=== PATIENT | male | born 1970 | race Caucasian/White ===

== ENCOUNTER 2016-06-26 06:42 | Outpatient (CLI) | payer BC ==
[~2016-06-26] VITALS: Ht 167.6 cm; Wt 122.7 kg
--- NOTE | ~2016-06-26 | HEMODYNAMI ---
PATIENT:SUGAR LEONE MEDICAL RECORD: [id number] : 68 LOCATION:[facility] ADMISSION DATE: 06/26/16 Generatedon:06/26/201612:06 Patient name: SUGAR LEONE Patient #: [id number] SSN: : 1970 Date of study: 06/26/2016 Page: Of Hemodynamic Procedure Report Patient Data Patient Demographics Procedure consent was obtained First Name: USGAR Gender: Male Last Name: SULEMA : 1970 [facility] Initial: EARNESTINE Age: 46 year(s) Patient #: [id number] Race: Unknown Additional ID: [id number] Contact details [address]: [address] [place] [address] State: [place] City: [place] Zip code: [address] Past Medical History Allergies Allergen Reaction Date Comments Reported Other allergy 06/26/2016 levaquin, zosyn, gentamycin, sulfa, lodine Admission Admission Data Admission Date: 06/26/2016 Admission Time: 6:42 Admit Source: Other Lab Results Lab Result Date: 06/26/2016 Lab Result Time: 0:00 Biochemistry Name Units Result Min Max BUN mg/dl 16 --(---*)-- 7 18 Creatinine mg/dl 1.1 --(--*-)-- 0.6 1.3 CBC Name Units Result Min Max Hemoglobin g/dl 13.9 --(*---)-- 13.5 17.5 Procedure Procedure Types Cath Procedure Diagnostic Procedure LHC LHC w/Coronaries FFR/IVUS Intra-Coronary IVUS Initial PCI Procedure Coronary Stent Initial Procedure Description Procedure Date Procedure Date: 06/26/2016 Procedure Start Time: 11:40 Procedure End Time: 12:02 Procedure Staff Name Function Víctor Sheriff RT Physician Office Assistant Emigdio Valerio MD Performing Physician Kelin Armando RN Nurse Elle Burnette RT Scrub Keshawn Frye RT Monitor Procedure Data Cath Procedure Fluoroscopy Diagnostic fluoroscopy Total fluoroscopy Time: 7.6 time: 7.6 min min Diagnostic fluoroscopy Total fluoroscopy dose: dose: 1835 mGy 1835 mGy Contrast Material Contrast Material Type Amount (ml) Isovue 300 136 Entry Location Entry Primary Successful Side Size Upsize Upsize Entry Closure Mccarthy ccessful Closure Location (Fr) 1 (Fr) 2 (Fr) Remarks Device Remarks Radial Right 6 Fr Mechanical artery Short Compression Diagnostic catheters Device Type Used For End Catheter Placement Terumo 5Fr Robert 110cm LV Angiography catheter Procedure Complications No complications Procedure Medications Medication Administration Route Dosage Oxygen NC 2 l/min Heparin Flush Bag added to field 2 bags (1000units/500ml NS) Lidocaine 2% added to field 20 Radial Cocktail added to field 1 syringe (Verapomil 2mg/Nitro 400mcg/Heparin 1500units) Versed I.V. 1 mg Fentanyl I.V. 50 mcg Radial Cocktail I.A. 1 syringe (Verapomil 2mg/Nitro 400mcg/Heparin 1500units) Versed I.V. 1 mg Fentanyl I.V. 50 mcg Versed I.V. 1 mg Fentanyl I.V. 50 mcg Fentanyl I.V. 50 mcg Versed I.V. 1 mg Heparin Bolus I.V. 4000 units Hemodynamics Rest HGB: 13.9 (g/dl) Heart Rate: 75 (bpm) Snapshots Pre Cath Intra NCS Post Cath Vital Signs Time Heart Resp SPO2 NIBP (mmHg) Rhythm Pain Sedation Rate (ipm) (%) Status Level (bpm) 11:27:46 71 16 98 139/87(114) NSR 0 (11) 10(A) , No pain 11:32:00 72 12 98 141/82(102) NSR 0 (11) 10(A) , No pain 11:36:10 76 16 97 137/85(107) NSR 0 (11) 10(A) , No pain 11:40:23 74 16 97 148/84(102) NSR 0 (11) 10(A) , No pain 11:44:31 87 16 97 135/83(120) NSR 0 (11) 10(A) , No pain 11:48:41 91 16 96 135/78(123) NSR 0 (11) 10(A) , No pain 11:52:55 92 16 95 131/77(98) NSR 0 (11) 10(A) , No pain 11:57:52 95 17 95 138/80(100) NSR 0 (11) 10(A) , No pain 11:59:59 91 18 96 137/81(111) NSR 0 (11) 10(A) , No pain Medications Time Medication Route Dose Verified Delivered Reason Note s Effectiveness by by 11:27:58 Oxygen NC 2 l/min Emigdio Kelin Per physician Teodoro Armando RN 11:28:04 Heparin Flush added 2 bags Emigdiobarby Beal used for Bag to Teodoro Valerio MD procedure (1000units/500ml field NS) 11:28:12 Lidocaine 2% added 20ml Emigdio Emigdio used for to vial Teodoro Valerio MD procedure field 11:28:19 Radial Cocktail added 1 Emigdio Emigdio used for (Verapomil to syringe Teodoro Valerio MD procedure 2mg/Nitro field 400mcg/Hepari 11:36:23 Versed I.V. 1 mg Emigdio Kelin for sedation Teodoro Armando RN 11:36:34 Fentanyl I.V. 50 mcg Emigdio Kelin for sedation Teodoro Armando RN 11:38:02 Versed I.V. 1 mg Emigdio Kelin for sedation Teodoro Armando RN 11:38:06 Fentanyl I.V. 50 mcg Emigdio Kelin for sedation Teodoro Armando RN 11:40:05 Fentanyl I.V. 50 mcg Emigdio Kelin for sedation Teodoro Armando RN 11:40:57 Radial Cocktail I.A. 1 Emigdio Emigdio for (Verapomil syringe Teodoro Valerio MD vasodilation 2mg/Nitro 400mcg/Hepari 11:40:59 Versed I.V. 1 mg Emigdio Kelin for sedation Teodoro Armando RN 11:42:13 Fentanyl I.V. 50 mcg Emigdio Kelin for sedation Teodoro Armando RN 11:42:18 Versed I.V. 1 mg Emigdio Kelin for sedation Teodoro Armando RN 11:52:18 Heparin Bolus I.V. 4000 Emigdio Kelin for dose units Teodoro Armando RN anticoagulation verified with dr valerio Procedure Log Time Note 11:14:13 Admit Source: Other 11:14:46 Diagnostic Cath status Elective 11:14:55 Víctor Sheriff RT(R) sent for patient. Start room use. 11:14:57 Time tracking: Regular hours 11:15:02 Plan of Care:Hemodynamics will remain stable., Cardiac rhythm will remain stable., Comfort level will be maintained., Respiratory function will remain adequate., Patient/ family verbilizes understanding of procedure., Procedure tolerated without complication., Recovers from procedure without complications.. 11:15:10 Patient received from Outpatients to [facility] 1 Alert and oriented. Tansferred to table in Supine position. 11:26:43 Vital chart was started 11:27:58 Oxygen 2 l/min NC was given by Kelin Armando RN; Per physician; 11:28:04 Heparin Flush Bag (1000units/500ml NS) 2 bags added to field was given by Emigdio Valerio MD; used for procedure; 11:28:12 Lidocaine 2% 20ml vial added to field was given by Emigdio Valerio MD; used for procedure; 11:28:19 Radial Cocktail (Verapomil 2mg/Nitro 400mcg/Heparin 1500units) 1 syringe added to field was given by Emigdio Valerio MD; used for procedure; 11:31:53 Correct patient and procedure confirmed by team. 11:31:53 Warm blankets applied, and rekha hugger turned on for patient comfort. 11:31:55 Signed procedure consent form obtained from patient. 11:31:56 ECG and BP/O2 sat monitors applied to patient. 11:31:56 Baseline sample Acquired. 11:31:59 Rhythm: sinus rhythm 11:32:01 Full Disclosure recording started 11:32:47 Pre-op teaching completed and patient verbalized understanding. 11:32:47 Pre-procedure instructions explained to patient. 11:32:49 Family in waiting room. 11:32:51 Patient NPO since Midnight. 11:33:24 Patient allergic to Other allergylevaquin, zosyn, gentamycin, sulfa, lodine 11:33:26 Is the patient allergic to Iodine/contrast media? No. 11:33:30 Is patient on blood thinner?Yes 11:33:34 ACC The patient was administered the following blood thiners within the last 24 hours: ACCPlavix 11:33:36 Patient diabetic? No. 11:33:38 If diabetic: On Metformin? No 11:33:39 ----Pre-sedation anethsthesia assessment.---- 11:33:42 Previous problem with sedation/anesthesia? No ? 11:33:43 Snore? Yes 11:33:44 Sleep apnea? Yes 11:33:45 Deviated septum? No 11:33:46 Opens mouth fully? Yes 11:33:47 Sticks out tongue? Yes 11:33:49 Airway obstruction? No ? 11:33:51 Dentures? No ? 11:33:54 Pre procedure: right dorsailis pedis pulse 1+ Palpable, but thready & weak; easily obliterated 11:33:58 Modified Hemant's test Ulnar < 7 seconds 11:34:00 Patient pain scale 0/10 ?. 11:34:03 IV patent on arrival in left antecubital with 0.9% NaCl at 10ml/hr. 11:35:57 Lab Result : Hemoglobin 13.9 g/dl 11:35:57 Lab Result : Creatinine 1.1 mg/dl 11:35:57 Lab Result : BUN 16 mg/dl 11:36:00 Lab results completed and on chart. 11:36:03 Right Radial & Right Groin area was prepped with chlora-prep and draped in sterile fashion 11:36:04 Sharps counted by scrub and verified by R.N. 11:36:04 Alarms reviewed by R. N. 11:36:06 Final Timeout: patient, procedure, and site verified with staff and physician. All members of the team are in agreement. 11:36:06 --------ALL STOP TIME OUT------ 11:36:08 Right Radial & Right Groin site verified by team. 11:36:12 Physical assessment completed. ASA score P 2 - A patient with mild systemic disease as per Emigdio Valerio MD. 11:36:16 Sedation plan: IV Moderate Sedation Versed, Fentanyl 11:36:23 Versed 1 mg I.V. was given by Kelin Armando RN; for sedation; 11:36:34 Fentanyl 50 mcg I.V. was given by Kelin Armando RN; for sedation; 11:36:51 Use device set Radial Dx 11:36:52 Cardinal Cath Pack opened to sterile field. 11:36:52 Acist Syringe opened to sterile field. 11:36:53 Terumo 6Fr Slender Glidesheath opened to sterile field. 11:36:53 Bag Decanter opened to sterile field. 11:36:54 Acist Hand Control opened to sterile field. 11:36:54 St Haile 260cm J .035 wire opened to sterile field. 11:36:55 Acist Manifold opened to sterile field. 11:36:57 Tegaderm 4 x 4 opened to sterile field. 11:38:02 Versed 1 mg I.V. was given by Kelin Armando RN; for sedation; 11:38:06 Fentanyl 50 mcg I.V. was given by Kelin Armando RN; for sedation; 11:39:56 Procedure started. 11:40:05 Fentanyl 50 mcg I.V. was given by Kelin Armando RN; for sedation; 11:40:17 Local anesthetic to right radial artery with Lidocaine 2% by Emigdio Valerio MD.INITIAL ACCESS ONLY 11:40:24 A 6 Fr Short sheath was inserted into the Right Radial artery 11:40:34 A Terumo 5Fr Robert 110cm catheter was advanced over the wire and used for LV Angiography. 11:40:39 LV angiography performed. 11:40:44 Zero performed for pressure channel P1 11:40:56 LV gram done using STEPHENS 11:40:57 Radial Cocktail (Verapomil 2mg/Nitro 400mcg/Heparin 1500units) 1 syringe I.A. was given by Emigdio Valerio MD; for vasodilation; 11:40:59 Versed 1 mg I.V. was given by Kelin Armando RN; for sedation; 11:41:45 EF : 55 % 11:42:04 Injector settings: Ml/sec: 5, Volume: 15, 11:42:13 Fentanyl 50 mcg I.V. was given by Kelin Armando RN; for sedation; 11:42:18 Versed 1 mg I.V. was given by Kelin Armando RN; for sedation; 11:44:42 LCA angiography performed. 11:44:47 RCA angiography performed. 11:44:49 Catheter removed. 11:46:07 Chavez Whisper J 300cm 0.014 guide wire opened to sterile field. 11:46:08 [facility] Eag[facility] IVUS Catheter opened to sterile field. 11:46:08 [facility] BasixCompak Inflation Kit opened to sterile field. 11:46:09 Cordis 6FR XBLAD 3.5 guide catheter opened to sterile field. 11:46:33 6 Fr XBLAD 3.5 guide catheter was inserted over the wire 11:46:36 WHISPER wire advanced. 11:46:38 FFR/IVUS 11:46:39 IVUS catheter advanced over wire. 11:46:40 IVUS pass to LAD lesion performed. 11:51:50 IVUS catheter removed over wire. 11:51:59 Procedure type changed to Cath procedure, Diagnostic procedure, LHC, LHC w/Coronaries, FFR/IVUS, Intra-Coronary IVUS Initial, PCI procedure, Coronary Stent Initial 11:52:18 Heparin Bolus 4000 units I.V. was given by Kelin Armando RN; for anticoagulation; dose verified with dr valerio 11:54:01 Inflation Number: 1 A Medtronic Integrity 4.0 X 22 stent was prepped and advanced across the Prox LAD. The stent was deployed at 17 CARMEL for 0:13 (min:sec). 11:54:57 Stent catheter was removed intact over wire. 11:57:21 Inflation Number: 2 A Medtronic Integrity 4.0 X 12 stent was prepped and advanced across the Prox LAD. The stent was deployed at 17 CARMEL for 0:10 (min:sec). 11:57:34 Stent catheter was removed intact over wire. 11:57:37 ACC Post-intervention EDISON Flow is 3. 11:57:43 ACC PCI Site: pLAD has 80% stenosis. 11:57:45 ACC Pre-intervention EDISON Flow is 3. 11:58:07 Wire removed. 11:58:08 Guide catheter removed. 11:58:17 Procedure ended.(Physican Out) 11:58:22 Sheath removed intact; hemostasis achieved with Mechanical Compression to the Right Radial artery. 11:58:35 Terumo TR Band Large opened to sterile field. 11:58:58 Fluoroscopy time 07.60 minutes. 11:59:08 Fluoroscopy dose: 1835 mGy 11:59:08 Flurop Dose total: 1835 11:59:33 Contrast amount:Isovue 300 136ml. 11:59:34 Sharps counted by scrub and verified by R.N. 11:59:36 TR band inflated with 10cc of air. 11:59:38 Insertion/operative site no bleeding no hematoma. 11:59:43 Post right radial artery:stable 11:59:45 Post Procedure Pulses reassessed and unchanged 11:59:47 Post procedure: right dorsailis pedis pulse 1+ Palpable, but thready & weak; easily obliterated. 11:59:49 Post procedure rhythm: sinus rhythm 11:59:51 Post procedure instruction explained to patient.Patient verbalizes understanding. 12:00:37 Procedure and supply charges have been captured, reviewed, submitted and are correct. 12:00:41 Procedure Complication : No complications 12:02:49 Vital chart was stopped 12:02:51 See physician's report for complete and final results. 12:02:53 Report given to Post Procedure Room. 12:02:56 Patient transfered to Post Procedure Room with Stretcher. 12:02:57 Full Disclosure recording stopped 12:02:57 Procedure ended. 12:03:06 ACC-PCI Only Patient was given prescriptions, or instructed by Emigdio Valerio MD to start/continue the following medications upon discharge: Plavix 12:03:07 End room use (Document Last) 12:06:00 ACC Patient presents with Stable Angina CCS Anginal Class 2--Slight limitation of ordinary activity. Intervention Summary Intervention Notes Time ActionType Lesion and Equipment Action# Pressure Duration Attributes Used 11:54:01 Place stent Prox LAD Medtronic 1 17 00:13 Integrity 4.0 X 22 stent 11:57:21 Place stent Prox LAD Medtronic 2 17 00:10 Integrity 4.0 X 12 stent Device Usage Item Name Manufacture Quantity Catalog Hospital Part Current Minimal Lot# / Number Charge Number Stock Stock Serial# Code Acist Acist 1 74805 604990 092645 350762 20 123people [employer] Inc Cardinal Cardinal 1 [id number] 866822 95388 768359 5 Cath Pack Health Bag Microtek 1 737627 86562 416931 5 [employer] Inc. Terumo 6Fr Terumo 1 [id number] 070337 299088 887525 [address] Ha[address] St Haile 1 771619 358517 429482 604148 30 260cm J .035 wire Acist Hand Acist 1 00880 384115 885419 686738 5 Control Medical Systems Inc Acist Acist 1 38228 761216 928895 302680 5 Manifold Medical Systems Inc Tegaderm 4 3M 1 1626W 542111 103993 856146 5 x 4 Terumo 5Fr Terumo 1 47-3692 105494 251786 849823 5 Robert 110cm catheter Chavez Chavez 1 [id number] 400827 964158 965017 5 Whisper J Vascular 300cm 0.014 guide wire Merit Merit 1 DF0624 908997 325869 964629 15 [employer] Medical Inflation Kit [facility] 1 [id number] 145656 811031 944917 8 [facility] IVUS Catheter Cordis 6FR Cardinal 1 [id number] 735855 901223 378340 10 XBLAD 3.5 Health guide catheter Medtronic Medtronic 1 [id number] 607311 804376 199909 8 [id number] Integrity 4.0 X 22 stent Medtronic Medtronic 1 [id number] 378736 607936 153581 0 [id number] Integrity 4.0 X 12 stent Terumo TR Terumo 1 [id number] 330943 564421 40 Band Large Signature Audit [place] Stage Time Signature Unsigned Intra-Procedure 06/26/2016 Keshawn Frye 12:06:16 PM RT(R) Signatures Monitor : Keshawn Frye RT Signature : Date : Time : [facility] [address] [place] [address]
[2016-06-26] MEDS ORDERED: AVAPRO150 MG PO (08:52)
[2016-06-26] MEDS ORDERED: NORVASC10 MG PO (08:52)
[2016-06-26] MEDS ORDERED: ZOCOR40 MG PO (08:53)
[2016-06-26] MEDS ORDERED: HYDROCHLOROTH12.5 M1 PO (08:54)
[2016-06-26] MEDS ORDERED: PLAVIX75 MG PO ×2 (08:55→12:17)
[2016-06-26 09:03] VITALS: BP 125/74; Ht 167.6 cm; Wt 122.7 kg
[2016-06-26 09:04] LABS: BASOPHILS 0.5 % (0.0-2.0); EOSINOPHILS 4.8 % (0-7); HEMATOCRIT 41.6 % (42.0-54.0); HEMOGLOBIN 13.9 g/dL (13.5-17.5); IMMATURE GRANULOCYTES 0.4 % (0-5); LYMPHOCYTES 48.5 % (15-50); MCH 31.6 pg (26.0-34.0); MCHC 33.4 g/dL (31.0-37.0); MCV 94.5 fL (80.0-100.0); MEAN PLATELET VOLUME 10.1 fL (7.4-10.4); MONOCYTES 9.3 % (2-11); NEUTROPHILS 36.5 % (40-80); PLATELET COUNT 223 10x3/uL (130-400); RDW 12.2 % (11.5-14.5); WBC 5.5 10x3/uL (4.8-10.8)
[2016-06-26 09:15] LABS: CALC OSMOLALITY 285 mosm/kg (275-300); CALCIUM 9.4 mg/dL (8.5-10.1); CARBON DIOXIDE 31.1 mmol/L (21.0-32.0); CHLORIDE - SERUM 104 mmol/L (98-107); CREATININE - SERUM 1.1 mg/dL (0.6-1.3); GLUCOSE 97 mg/dL (74-106); POTASSIUM - SERUM 4.3 mmol/L (3.5-5.1); SODIUM 143 mmol/L (136-145); UREA NITROGEN 16 mg/dL (7-18); eGFR NON AFRICAN AMERICAN 76 mL/min (90-120)
--- NOTE | 2016-06-26 11:11 | HP ---
PATIENT: SUGAR LEONE MEDICAL RECORD: [id number] ACCOUNT: [id number] LOCATION:[facility] : 68 ADMISSION DATE: 06/26/16 HISTORY AND PHYSICAL EXAMINATION DIAGNOSES: 1. Angina. 2. Abnormal nuclear stress test, reversible ischemia anteriorly. 3. Hypertension. 4. Hyperlipidemia. HISTORY OF PRESENT ILLNESS: This is a gentleman with no previous cardiac history, history hypertension or hyperlipidemia, who presents with anginal symptomatology, underwent nuclear stress testing revealing significant perfusion defect anteriorly and he is now brought for cardiac catheterization. PHYSICAL EXAMINATION: GENERAL APPEARANCE: Well-nourished, well-developed, appears stated age. Level of distress, comfortable. PSYCHIATRIC: Mental status, alert, normal affect. Orientation, oriented to time, place and person. EYES: Lids and conjunctiva, noninjected. No discharge, no pallor. ENT: Lips, teeth, gums, normal dentition. Oropharynx, no cyanosis, no pallor. NECK: Carotid arteries, bilateral normal upstroke, no bruits, no thrills. JUGULAR VEINS: No jugular venous pressure or distention. CERVICAL LYMPH NODES: Nontender, nonenlarged. THYROID: Not enlarged. Nontender. No nodules. LUNGS: Respiratory effort, unlabored. CHEST: Normal curvature. No thoracic deformity. No chest wall tenderness. Percussion, resonant. Auscultation, clear. No wheezes, no rales, no rhonchi. CARDIOVASCULAR: Precordial exam, nondisplaced. No heaves or pericardial thrills. Rate and rhythm, regular. Heart sounds, normal S1, normal S2. No S3, no gallop, no rub. Systolic murmur, not heard. Diastolic murmur, not heard. EXTREMITIES: No cyanosis, no edema. Peripheral pulses, full and equal in all extremities, except as noted. No bruits appreciated. ABDOMEN: Soft, nondistended. Normal aorta. No bruit. Nontender. No masses. Liver, nontender, no hepatomegaly. Spleen, nontender, no splenomegaly. MUSCULOSKELETAL: No joint tenderness. No joint swelling. No erythema. NEUROLOGICAL: Normal gait, normal strength, normal tone. SKIN: Warm and dry. REVIEW OF SYSTEMS: The patient reports easy bruising but reports no swollen glands. The patient reports no fever, no night sweats, no significant weight gain, no significant weight loss. No significant exercise tolerance. The patient reports no dry eyes, no irritation, no vision change. Patient reports no difficulty hearing and no ear pain. Patient reports no frequent nose bleeds or nose and sinus problems. Patient reports on arm pain on exertion. No shortness of breath while lying down. No history of heart murmur. Patient reports no cough, no wheezing or coughing up blood. Patient reports no abdominal pain, no vomiting. Normal appetite. No diarrhea and not vomiting blood. No nausea and no constipation. Patient reports no incontinence. No difficulty urinating. No hematuria. No increased frequency. Patient reports no muscle aches. No weakness, no arthralgias, no back pain. No swelling of the extremities. Patient reports no abnormal mole, no jaundice, no rashes. Reports no loss of consciousness. No weakness and no numbness. No seizures, dizziness, HISTORY AND PHYSICAL [id number] SULEMA,SUGAR EARNESTINE or headaches. The patient reports no depression, no sleep disturbance, feeling safe in a relationship and no alcohol abuse. Patient reports on fatigue. Reports no runny nose or sinus pressure. No itching, no hives, and no frequent sneezing. OVERALL IMPRESSION: Anginal symptomatology with significant perfusion defect on nuclear stress testing. We will proceed with coronary angiography as most likely, he has hemodynamically significant coronary artery disease. Further care depends upon findings of the angiography. TRANSINT:[id number] Voice Confirmation ID: [id number] DOCUMENT ID: [id number] BRYSON DIAZ MD at 1111 CC: [id number] DICTATION DATE: 06/26/16903 PET HOUSE SITTER: 06/26/16924 [facility] [address] [id number]
[2016-06-26] MEDS ORDERED: BAYER CHEWABLE81 MG PO (12:17)
--- NOTE | 2016-06-26 12:26 | NUR ---
1225 SITTING UP IN BED TALKING WITH FAMILY, ROOM AIR WITH NO DISTRESS. NSR RATE 71 W NO C/O CHEST PAIN. PULSES PALP X 4. R WRIST TR BAND C/D/I WITH NO HEMATOMA OR BLEEDING.
--- NOTE | 2016-06-26 15:29 | NUR ---
1300 R WRIST TR BAND C/D/I WITH NO HEMATOMA OR BLEEDING. LYING FLAT. VITALS ALL WNL. ROOM AIR WITH NO RESP DISTRESS. 1400 RESTING WITH EYES CLOSED, ROOM AIR, NSR RATE 71 W NO C/O CHEST PAIN. PULSES PALP X4. R WRIST TR BAND C/D/I WITH NO HEMATOMA OR BLEEDING. 1500 4CC AIR REMOVED FROM R WRIST TR BAND C/D/I WITH NO HEMATOMA OR BLEEDING. VITALS ALL WNL. WILL MONITOR CLOSELY FOR BLEEDING.
--- NOTE | 2016-06-26 15:46 | NUR ---
PIV REMOVED FROM LEFT UPPER ARM WITH BANDAID APPLIED. UP TO BEDSIDE TO DRESS WITH ASSIST FROM .
--- NOTE | 2016-06-26 16:02 | NUR ---
TR BAND REMOVED WITH 2X2 AND TEGADERM APPLIED TO R WRIST. D/C INSTRUCTIONS DISCUSSED WITH PATIENT AND SPOUSE AT BEDSIDE. WHEELED DOWN VIA WHEELCHAIR BY CATH TEAM.
--- NOTE | 2016-07-03 16:40 | OP ---
PATIENT NAME: SUGAR LEONE MEDICAL RECORD: [id number] :68 LOCATION:D.CAT ADMISSION DATE: SURGEON: BRYSON DIAZ MD DATE OF OPERATION: 06/26/2016 PROCEDURES: 1. PTCA stent LAD. 2. Intravascular ultrasound of the LAD. 3. Left heart catheterization. 4. Selective coronary angiography. 5. Left ventriculogram. INDICATION: Angina and coronary artery disease. PROCEDURE IN DETAIL: After informed consent was obtained and after detailed explanation of risks, benefits as well as alternative therapies, the patient elected to proceed with angiogram and angioplasty. The right radial area was prepped and draped in normal sterile fashion. The right radial artery was cannulated via modified Seldinger technique with placement of 6-Setswana sheath. All catheters exchanged through this sheath. FINDINGS: Left ventriculogram was performed in standard 30-degree STEPHENS view, reveals good cardiac wall motion throughout all segments. Overall ejection fraction 55%. SELECTIVE CORONARY ANGIOGRAPHY: 1. Left main showed no significant angiographic disease. 2. Left anterior descending has 80% stenosis confirmed by intravascular ultrasound. This correlates perfusion defect on nuclear stress testing. 3. The left circumflex shows moderate irregularities. 4. The right coronary has moderate irregularities, but no flow-limiting stenosis. PTCA STENT OF THE LAD: The stent used were 4.0 x 22 and 4.0 x 12 both Integrity stents. Result was 0% residual stenosis. OVERALL IMPRESSION: Successful percutaneous transluminal coronary angioplasty stent of the left anterior descending going from 80% initial stenosis to 0% residual. TRANSINT:[id number] Voice Confirmation ID: [id number] DOCUMENT ID: [id number] BRYSON DIAZ MD at 1640 CC: [id number] DICTATION DATE: 06/26/16 1203 STAMP PRESS OPERATOR: 06/26/16 1212 [facility] CLI 06/26/16 [place] [address]
== END 2016-06-26 16:05 | disposition home or self-care (01) ==
LOC: D.CATH 06:42
PROVIDERS: Internal Medicine Interventional Cardiology
DX: I25.119 Atherosclerotic heart disease of native coronary artery with unspecified angina pectoris (principal)

== ENCOUNTER 2017-06-01 07:37 | Outpatient (CLI) | payer BC ==
[2016-06-26 09:03] VITALS: BMI 43.6
--- NOTE | ~2017-06-01 | HEMODYNAMI ---
PATIENT:SUGAR LEONE MEDICAL RECORD: [id number] : 68 LOCATION:D.CAT ADMISSION DATE: 06/01/17 Generatedon:06/01/201710:00 Patient name: SUGAR LEONE Patient #: [id number] SSN: : 1970 Date of study: 06/01/2017 Page: Of Hemodynamic Procedure Report Patient Data Patient Demographics Procedure consent was obtained First Name: SUGAR Gender: Male Last Name: SULEMA : 1970 [facility] Initial: EARNESTINE Age: 47 year(s) Patient #: [id number] Race: Unknown Additional ID: [id number] Contact details Address: [address] [place] [address] State: [place] City: [place] Zip code: [address] Past Medical History Allergies Allergen Reaction Date Comments Reported Other allergy 06/26/2016 levaquin, zosyn, gentamycin, sulfa, lodine Other allergy 06/01/2017 Sulfa, Zosyn, gentamycin, Levaquin, Lodine, Plavix, Amledpine. Admission Admission Data Admission Date: 06/01/2017 Admission Time: 7:37 Admit Source: Other Procedure Procedure Types Cath Procedure Diagnostic Procedure [facility] w/Coronaries PCI Procedure Coronary Stent Coronary Stent Initial Miscellaneous Procedures Moderate Sedation up to 30 minutes Procedure Description Procedure Date Procedure Date: 06/01/2017 Procedure Start Time: 9:41 Procedure End Time: 9:59 Procedure Staff Name Function Emigdio Valerio MD Performing Physician Scar Flores RN Nurse Damien Horner RT Monitor Columba Zamora RT Scrub Procedure Data Cath Procedure Fluoroscopy Diagnostic fluoroscopy Total fluoroscopy Time: 3.3 time: 3.3 min min Diagnostic fluoroscopy Total fluoroscopy dose: 815 dose: 815 mGy mGy Contrast Material Contrast Material Type Amount (ml) Isovue 300 86 Entry Location Entry Primary Successful Side Size Upsize Upsize Entry Closure Mccarthy ccessful Closure Location (Fr) 1 (Fr) 2 (Fr) Remarks Device Remarks Radial Right 6 Fr Mechanical artery Short Compression Estimated blood loss: 10 ml Diagnostic catheters Device Type Used For End Catheter Placement DIAGNOSTIC Terril 110cm 5 Procedure Fr catheter ([id number]) Procedure Complications No complications Procedure Medications Medication Administration Route Dosage 0.9% NaCl I.V. 100 ml/hr Oxygen NC 2 l/min Heparin Flush Bag added to field 2 bags (1000units/500ml NS) Lidocaine 2% added to field 20 Versed I.V. 2 mg Fentanyl I.V. 100 mcg Radial Cocktail I.A. (Verapomil 2mg/Nitro 400mcg/Heparin 1500units) Versed I.V. 1 mg Versed I.V. 1 mg Heparin Bolus I.V. 4000 units Integrilin (Bolus I.V. 11.3 ml 2mg/ml) Integrilin (Bolus wasted 8.7 ml 2mg/ml) Effient P.O. 60 mg Hemodynamics Rest Heart Rate: 63 (bpm) Pressure Samples Time Site Value (mmHg) Purpose Heart Use Rate(bpm) 9:44 LV 66/15,22 Snapshot 73 9:44 LV 112/2,13 Snapshot 72 Snapshots Pre Cath Intra NCS Post Cath Vital Signs Time Heart Resp SPO2 etCO2 NIBP (mmHg) Rhythm Pain Sedation Rate (ipm) (%) (mmHg) Status Level (bpm) 9:28:42 62 21 96 18 124/71(91) NSR 0 (11) 10(A) , No pain 9:33:26 60 19 100 41.4 128/71(89) NSR 0 (11) 10(A) , No pain 9:38:11 60 22 98 41.4 122/74(97) NSR 0 (11) 10(A) , No pain 9:42:52 64 18 97 26.3 123/76(109) NSR 0 (11) 10(A) , No pain 9:47:39 74 18 94 39.9 119/71(86) NSR 0 (11) 10(A) , No pain 9:52:28 76 16 98 39.1 125/62(93) NSR 0 (11) 10(A) , No pain 9:57:16 68 23 96 39.1 111/45(73) NSR 0 (11) 10(A) , No pain Medications Time Medication Route Dose Verified Delivered Reason Notes Effectiveness by by 9:30:57 0.9% NaCl I.V. 100 Scar Scar Per physician ml/hr Mark Flores RN RN 9:31:22 Oxygen NC 2 Scar Scar Per physician l/min Mark Flores RN RN 9:31:34 Heparin Flush added 2 Scar Scar used for Bag to bags Mark Flores procedure (1000units/500ml field RN RN NS) 9:31:47 Lidocaine 2% added 20ml Scar Scar for local to vial Mark Flores anesthetic field RN RN 9:40:32 Versed I.V. 2 mg Scar Scar for sedation Mark Flores RN RN 9:40:41 Fentanyl I.V. 100 Scar Scar for sedation mcg Mark Flores RN RN 9:42:21 Radial Cocktail I.A. Scar Meigdio for (Verapomil Mark Valerio MD vasodilation 2mg/Nitro RN 400mcg/Heparin 1500units) 9:42:32 Versed I.V. 1 mg Scar Scar for sedation Mark Flores RN RN 9:43:39 Versed I.V. 1 mg Scar Scar for sedation Mark Flores RN RN 9:52:30 Heparin Bolus I.V. 4000 Scar Scar for units Mark Flores anticoagulation RN RN 9:52:52 Integrilin I.V. 11.3 Scar Scar for (Bolus 2mg/ml) ml Mark Flores antiplatelet RN RN therapy 9:53:07 Integrilin wasted 8.7ml Scar Scar to sharp's (Bolus 2mg/ml) Mark Flores RN RN 9:57:04 Effient P.O. 60 mg Scar Scar for Mark Flores antiplatelet RN RN therapy Procedure Log Time Note 8:46:29 Informed consent obtained and on chart 8:46:41 Admit Source: Other 8:47:14 Diagnostic Cath status Elective 9:15:57 Columba Zamora RT(R) sent for patient. Start room use. 9:15:58 Time tracking: Regular hours 9:16:04 Plan of Care:Hemodynamics will remain stable., Cardiac rhythm will remain stable., Comfort level will be maintained., Respiratory function will remain adequate., Patient/ family verbilizes understanding of procedure., Procedure tolerated without complication., Recovers from procedure without complications.. 9:22:10 Patient received from Pre/Post Procedure Room to CCL 1 Alert and oriented. Tansferred to table in Supine position. 9:22:12 Warm blankets applied, and rekha hugger turned on for patient comfort. 9:22:12 Warm blankets applied, and rekha hugger turned on for patient comfort. 9:22:13 Correct patient and procedure confirmed by team. 9:22:16 ECG and BP/O2 sat monitors applied to patient. 9:22:35 H&P Date Dictated: 05/12/2017 Within 30 days and on chart., H&P Addendum completed by physician on day of procedure. (MUST COMPLETE FOR ALL OUTPATIENTS). 9:22:37 Pre-procedure instructions explained to patient. 9:22:37 Pre-op teaching completed and patient verbalized understanding. 9:22:39 Family in waiting room. 9:22:41 Patient NPO since Midnight. 9:27:46 Vital chart was started 9:27:47 Full Disclosure recording started 9:30:57 0.9% NaCl 100 ml/hr I.V. was administered by Scar Flores RN; Per physician; 9:31:22 Oxygen 2 l/min NC was administered by Scar Flores RN; Per physician; 9:31:34 Heparin Flush Bag (1000units/500ml NS) 2 bags added to field was administered by Scar Flores RN; used for procedure; 9:31:47 Lidocaine 2% 20ml vial added to field was administered by Scar Flores RN; for local anesthetic; 9:37:15 Baseline sample Acquired. 9:37:21 Rhythm: sinus rhythm 9:38:06 Patient allergic to Other allergySulfa, Zosyn, gentamycin, Levaquin, Lodine, Plavix, Amledpine. 9:38:08 Is the patient allergic to Iodine/contrast media? No. 9:38:09 Is patient on blood thinner?No 9:38:10 Patient diabetic? No. 9:38:12 Previous problem with sedation/anesthesia? No ? 9:38:13 Snore? Yes 9:38:14 Sleep apnea? Yes 9:38:15 Deviated septum? No 9:38:16 Opens mouth fully? Yes 9:38:18 Sticks out tongue? Yes 9:38:20 Airway obstruction? No ? 9:38:22 Dentures? No ? 9:38:24 Modified Hemant's test Ulnar < 7 seconds 9:38:25 Patient pain scale 0/10 ?. 9:38:34 IV patent on arrival in left hand with 0.9% NaCl at [facility]. 9:38:37 Lab results completed and on chart. 9:38:39 Right Radial & Right Groin area was prepped with chlora-prep and draped in sterile fashion 9:38:40 Alarms reviewed by R. N. 9:38:40 Sharps counted by scrub and verified by R.N. 9:38:42 Use device set Radial Dx 9:38:45 Tegaderm 4 x 4 ([id number]) opened to sterile field. 9:38:45 ACIST Hand Control (67726) opened to sterile field. 9:38:46 ACIST Manifold (88674) opened to sterile field. 9:38:47 ACIST Syringe (91826) opened to sterile field. 9:38:48 Medline Cath Pack ([id number]) opened to sterile field. 9:38:49 Bag Decanter (2002S) opened to sterile field. 9:38:51 DIAGNOSTIC WIRE .035 260cm J wire (067954) opened to sterile field. 9:38:52 SHEATH 6FR Slender ([id number]) opened to sterile field. 9:39:01 Physician arrived 9:39:01 --------ALL STOP TIME OUT------ 9:39:02 Final Timeout: patient, procedure, and site verified with staff and physician. All members of the team are in agreement. 9:39:04 Right Radial & Right Groin site verified by team. 9:39:06 Physical assessment completed. ASA score P 2 - A patient with mild systemic disease as per Emigdio Valerio MD. 9:39:10 Sedation plan: IV Moderate Sedation Medication:Versed, Fentanyl 9:40:32 Versed 2 mg I.V. was administered by Scar Flores RN; for sedation; 9:40:41 Fentanyl 100 mcg I.V. was administered by Scar Flores RN; for sedation; 9:41:35 Procedure started. 9:41:39 Local anesthetic to right radial artery with Lidocaine 2% by Emigdio Valerio MD.INITIAL ACCESS ONLY 9:41:48 A 6 Fr Short sheath was inserted into the Right Radial artery 9:42:00 A DIAGNOSTIC Terril 110cm 5 Fr catheter ([id number]) was advanced over the wire and used for Procedure. 9:42:21 Radial Cocktail (Verapomil 2mg/Nitro 400mcg/Heparin 1500units) I.A. was administered by Emigdio Valerio MD; for vasodilation; 9:42:32 Versed 1 mg I.V. was administered by Scar Flores RN; for sedation; 9:42:37 Zero performed for pressure channel P1 9:42:43 Zero performed for pressure channel P1 9:43:39 Versed 1 mg I.V. was administered by Scar Flores RN; for sedation; 9:44:39 LV gram done using STEPHENS 9:44:52 EF : 55 % 9:46:05 LCA angiography performed. 9:46:27 INFLATOR Merit BasixCompak (MS0408) opened to sterile field. 9:47:41 RCA angiography performed. 9:49:14 CHOICE PT Extra Support 182cm wire ([id number]) opened to sterile field. 9:49:15 GUIDE 6FR XBLAD 3.5 catheter ([id number]) opened to sterile field. 9:50:12 Catheter removed. 9:50:19 6 Fr xblad 3.5 guide catheter was inserted over the wire 9:50:45 choice pt wire advanced. 9:50:49 Wire advanced across lesion. 9:52:30 Heparin Bolus 4000 units I.V. was administered by Scar Flores RN; for anticoagulation; 9:52:31 Inflation Number: 1 A INTEGRITY RX 2.5 x 14 stent ([id number]) was prepped and advanced across the Mid LAD. The stent was deployed at 15 CARMEL for 0:10 (min:sec). 9:52:52 Integrilin (Bolus 2mg/ml) 11.3 ml I.V. was administered by Scar Flores RN; for antiplatelet therapy; 9:53:07 Integrilin (Bolus 2mg/ml) 8.7ml wasted was administered by Scar Flores RN; to sharp's; 9:53:14 Stent catheter was removed intact over wire. 9:53:15 Wire removed. 9:53:16 Guide catheter removed. 9:53:29 TR BAND Large ([id number]) opened to sterile field. 9:53:44 Sheath removed intact; hemostasis achieved with Mechanical Compression to the Right Radial artery. 9:54:26 Procedure ended.(Physican Out) 9:55:40 Fluoroscopy time 03.30 minutes. 9:55:44 Fluoroscopy dose: 815 mGy 9:55:44 Flurop Dose total: 815 9:55:51 Contrast amount:Isovue 300 86ml. 9:55:52 Sharps counted by scrub and verified by R.N. 9:56:39 TR band inflated with 12cc of air. 9:56:40 Insertion/operative site no bleeding no hematoma. 9:56:55 Post right radial artery:stable, soft, clean and dry 9:56:57 Post Procedure Pulses reassessed and unchanged 9:56:59 Post-procedure physical assessment completed. ASA score P 2 - A patient with mild systemic disease as per Emigdio Valerio MD. 9:57:02 Post procedure rhythm: unchanged. 9:57:04 Effient 60 mg P.O. was administered by Scar Flores RN; for antiplatelet therapy; 9:57:04 Estimated blood loss: 10 ml 9:57:07 Post procedure instruction explained to patient.Patient verbalizes understanding. 9:57:08 Patient needs reinforcement of post procedure teaching. 9:57:31 Procedure type changed to Cath procedure, Diagnostic procedure, LHC, LHC w/Coronaries, PCI procedure, Coronary Stent, Coronary Stent Initial, Miscellaneous Procedures, Moderate Sedation up to 30 minutes 9:58:57 Procedure and supply charges have been captured, reviewed, submitted and are correct. 9:58:59 Procedure Complication : No complications 9:59:01 Vital chart was stopped 9:59:02 See physician's report for complete and final results. 9:59:03 Report given to Pre/Post Procedure Room. 9:59:05 Patient transfered to Pre/Post Procedure Room with Stretcher. 9:59:07 Procedure ended. 9:59:07 Full Disclosure recording stopped 9:59:11 End room use (Document Last) Intervention Summary Intervention Notes Time ActionType Lesion and Equipment Action# Pressure Duration Attributes Used 9:52:31 Place stent Mid LAD INTEGRITY RX 1 15 00:10 2.5 x 14 stent ([id number]) Device Usage Item Name Manufacture Quantity Catalog Number Hospital Part Current Mini mal Lot# / Charge Number Stock Stock Serial# Code Tegaderm 4 x 3M 1 1626W 950505 999614 [id number] 5 4 (1626W) ACIST Hand Acist 1 86673 891011 318296 323550 5 Control Medical (89731) Systems Inc ACIST Acist 1 67665 414942 794071 052388 5 Manifold Medical (29229) Systems Inc ACIST Acist 1 48983 863556 725286 441466 20 Syringe Medical (80264) Systems Inc Medline Cath Cardinal 1 [id number] 627111 01560 688371 5 Pack Health ([id number]) Bag Decanter Microtek 1 2001S 318304 59765 561813 5 (2001S) Medical Inc. DIAGNOSTIC St Haile 1 340758 766155 066607 767215 30 WIRE .035 260cm J wire (014771) SHEATH 6FR Terumo 1 [id number] 907203 546117 468825 40 Slender ([id number]) DIAGNOSTIC Terumo 1 40-5013 944343 415696 362353 5 Terril 110cm 5 Fr catheter (163834) INFLATOR Merit 1 MT2213 636682 742502 660881 15 [facility] Medical BasixCompak (LM1581) CHOICE PT King 1 [id number] 910130 334073 687804 5 Extra Scientific Support 182cm wire ([id number]) GUIDE 6FR Cardinal 1 [id number] 118957 817167 469486 10 XBLAD 3.5 Health catheter ([id number]) INTEGRITY RX Medtronic 1 [id number] 216652 326162 091172 5 [id number] 2.5 x 14 stent ([id number]) TR BAND Terumo 1 [id number] 574888 133947 911060 40 Large ([id number]) Signature Audit [place] Stage Time Signature Unsigned Intra-Procedure 06/01/2017 Damien Horner 10:00:06 AM RT(R) Signatures Monitor : Damien Honrer RT Signature : Date : Time : [facility] [address] [place] [address]
[~2017-06-01 07:37] MED LIST: AVAPRO150 MG PO; BAYER CHEWABLE81 MG PO; HYDROCHLOROTH12.5 M1 PO; NORVASC10 MG PO; PLAVIX75 MG PO; ZOCOR40 MG PO
[2017-06-01] MEDS ORDERED: ZOCOR40 MG PO (08:03)
[2017-06-01] MEDS ORDERED: EDARBYCLOR 40-1 EAC1 PO (08:04)
[2017-06-01] MEDS ORDERED: ZANAFLEX4 MG PO (08:04)
[2017-06-01] MEDS ORDERED: MULTIPLE VITAMI1 TA1 PO (08:05)
[2017-06-01 09:02] LABS: BASOPHILS 0.6 % (0-2); EOSINOPHILS 6.3 % (0-7); HEMOGLOBIN 14.1 g/dL (13.5-17.5); IMMATURE GRANULOCYTES 0.2 % (0-5); LYMPHOCYTES 43.3 % (15-50); MCH 31.3 pg (26.0-34.0); MCHC 33.6 g/dL (31.0-37.0); MCV 93.1 fL (80.0-100.0); MEAN PLATELET VOLUME 10.1 fL (7.4-10.4); MONOCYTES 7.8 % (2-11); NEUTROPHILS 41.8 % (40-80); PLATELET COUNT 204 10x3/uL (130-400); RBC 4.51 10x6/uL (4.20-6.10); RDW 13.1 % (11.5-14.5); WBC 5.2 10x3/uL (4.8-10.8)
[2017-06-01 09:21] LABS: CALC OSMOLALITY 281 mosm/kg (275-300); CALCIUM 9.5 mg/dL (8.5-10.1); CARBON DIOXIDE 27.9 mmol/L (21.0-32.0); CHLORIDE - SERUM 102 mmol/L (98-107); CREATININE - SERUM 1.1 mg/dL (0.6-1.3); GLUCOSE 94 mg/dL (74-106); SODIUM 140 mmol/L (136-145); UREA NITROGEN 21 mg/dL (7-18); eGFR NON AFRICAN AMERICAN 76 mL/min (90-120)
[2017-06-01] MEDS ORDERED: BRILINTA90 MG PO (10:16)
[2017-06-01] MEDS ORDERED: EFFIENT10 MG PO (10:24)
--- NOTE | 2017-06-01 10:39 | NUR ---
1025 SITTING UP IN BED, ROOM AIR WITH NO RESP DISTRESS. NSR RATE 67 W NO C/O CHEST PAIN. PULSES PALP X 4. R WRIST TR BAND C/D/I W NO HEMATOMA OR BLEEDING. FAMILY AT SIDE. 1040 SITTING UP EATING SANDWICH TRAY AND DRINKING COFFEE. R WRIST REMAINS C/D/I W NO HEMATOMA OR BLEEDING.
--- NOTE | 2017-06-01 12:35 | NUR ---
600CC VOIDED VIA URINAL. ALL VITALS WNL. R WRIST TR BAND C/D/I. FAMILY AT BEDSIDE.
--- NOTE | 2017-06-01 12:41 | NUR ---
1100 SITTING UP IN BED, TALKING WITH FAMILY AT BEDSIDE. ALL VITALS WNL. R WRIST TR BAND C/D/I. 1241 SIPPING COFFE. NO C/O THIS TIME. R WRIST TR BAND C/D/I. ALL VITALS WNL.
--- NOTE | 2017-06-01 13:21 | NUR ---
2CC AIR REMOVED FROM R WRIST TR BAND. WILL MONITOR FOR BLEEDING.
--- NOTE | 2017-06-01 13:36 | NUR ---
2CC AIR REMOVED FROM R WRIST TR BAND. NO BLEEDING OR HEMATOMA NOTED.
--- NOTE | 2017-06-01 13:51 | NUR ---
PIV REMOVED FROM LEFT HAND WITH BANDAID APPLIED. UP TO BEDSIDE TO DRESS.
--- NOTE | 2017-06-01 14:24 | NUR ---
TR BAND WEANED COMPLETELY. TEGADERM AND COTTON BALL APPLIED TO WRIST. CALLED DR. DIAZ REGARDING RX FOR SUBLINGUAL NITRO FOR PATIENT. T/O FOR SUBLINGUAL NITRO GIVEN. D/C INSTRUCTIONS DISCUSSED WITH PATIENT AND AT BEDSIDE. WHEELED OUT VIA WHEELCHAIR.
--- NOTE | 2017-06-09 15:46 | OP ---
PATIENT NAME: SUGAR LEONE MEDICAL RECORD: [id number] :68 LOCATION:D.CAT ADMISSION DATE: SURGEON: BRYSON DIAZ MD DATE OF OPERATION: 06/01/2017 PROCEDURES: 1. PTCA stent LAD. 2. Left heart catheterization. 3. Selective coronary angiography. 4. Left ventriculogram. INDICATION: Angina and coronary artery disease. PROCEDURE IN DETAIL: After informed consent was obtained and after detailed explanation of risks, benefits as well as alternative therapies, the patient elected to proceed with angiogram and angioplasty. The right radial area was prepped and draped in normal sterile fashion. The right radial artery was cannulated via modified Seldinger technique with placement of 6-Palestinian sheath. All catheters exchanged through this sheath. FINDINGS: Left ventriculogram was performed in the standard 30-degree STEPHENS view reveals good cardiac wall motion throughout all segments. Overall ejection fraction estimated 60%. SELECTIVE CORONARY ANGIOGRAPHY: 1. Left main showed no significant angiographic disease. 2. Left anterior descending has previously placed stent. This is widely patent. However, there is 70% stenosis in the mid vessel. 3. Left circumflex shows moderate irregularities, but no flow-limiting stenosis. 4. Right coronary has moderate irregularities, but no flow-limiting stenosis. PTCA STENT OF THE LAD: The stent used is a 2.5 x 14 mm Integrity taken to 15 atmospheres. Result was 0% residual stenosis. OVERALL IMPRESSION: Successful percutaneous transluminal coronary angioplasty stent of the left anterior descending going from 70% initial stenosis to 0% residual. TRANSINT:[id number] Voice Confirmation ID: [id number] DOCUMENT ID: [id number] BRYSON DIAZ MD at 1546 CC: [id number] DICTATION DATE: 06/01/17 0958 RADIAL DRILL OPERATOR: 06/01/17 1106 DEP CLI 06/01/17 [place] [id number]
== END 2017-06-01 14:26 | disposition home or self-care (01) ==
LOC: D.CATH 07:37
PROVIDERS: Internal Medicine Interventional Cardiology
DX: I20.9 Angina pectoris, unspecified (principal); I10 Essential (primary) hypertension; E78.5 Hyperlipidemia, unspecified; F17.200 Nicotine dependence, unspecified, uncomplicated; Z01.812 Encounter for preprocedural laboratory examination

== ENCOUNTER → 2018-07-13 10:57 | Outpatient (CLI) | payer BC ==
[2016-06-26 09:03] VITALS: BMI 43.6
[~2018-07-13 10:57] MED LIST changes: +BRILINTA90 MG PO; +EDARBYCLOR 40-1 EAC1 PO; +EFFIENT10 MG PO; +MULTIPLE VITAMI1 TA1 PO; +ZANAFLEX4 MG PO
--- NOTE | 2018-07-15 12:11 | ST ---
PATIENT:SUGAR LEONE MEDICAL RECORD: [id number] SEX: M LOCATION:[facility] ORDER #: ADMISSION DATE: 07/13/18 AGE OF PATIENT: 48 REFERRING PHYSICIAN: INTERPRETING PHYSICIAN: BRYSON DIAZ MD DATE OF SERVICE: 07/13/2018 PROCEDURE: Nuclear stress test. INDICATION: Angina, coronary artery disease, hypertension, and hyperlipidemia. He was exercised on standard Lexiscan protocol with 30 mCi of sestamibi injected at peak stress, 11 mCi were used previously for rest images. FINDINGS: Gated SPECT reveals a preserved ejection fraction at 65% with good wall motioning and thickening and brightening throughout all segments. SPECT IMAGING: Cardiolite was used as myocardial fusion agent. There are reversible changes anteriorly as well as inferoapically. This includes the basal, mid, apical anterior segments as well as basal, mid, apical inferior segments and the apex itself. The degree of reversibility is moderate. The amount of myocardium involved is very large. OVERALL IMPRESSION: This is a markedly abnormal nuclear stress test with reversibility anteriorly, inferiorly, and apically suggestive of multivessel coronary artery disease. We will proceed with coronary angiography as followup study. TRANSINT:[id number] Voice Confirmation ID: [id number] DOCUMENT ID: [id number] BRYSON DIAZ MD at 1211 CC: [id number] DICTATION DATE: 07/13/18 1605 FEED RESEARCH AIDE: 07/14/18 0826 DEP CLI 07/13/18 [place] [id number] [place] [id number]
== END | disposition home or self-care (01) ==
LOC: D.HCCARDIO 10:57
DX: I25.119 Atherosclerotic heart disease of native coronary artery with unspecified angina pectoris (principal)

== ENCOUNTER 2018-07-22 07:30 | Outpatient (CLI) | payer BC ==
[~2018-07-22] VITALS: Ht 167.6 cm; Wt 136.4 kg
--- NOTE | ~2018-07-22 | HEMODYNAMI ---
PATIENT:SUGAR LEONE MEDICAL RECORD: [id number] : 68 LOCATION:[facility] ADMISSION DATE: 07/22/18 Generatedon:07/22/20189:32 Patient name: SUGAR LEONE Patient #: [id number] SSN: : 1970 Date of study: 07/22/2018 Page: Of Hemodynamic Procedure Report Patient Data Patient Demographics Procedure consent was obtained First Name: SUGAR Gender: Male Last Name: SULEMA : 1970 [facility] Initial: EARNESTINE Age: 48 year(s) Patient #: [id number] Race: Unknown Additional ID: [id number] Contact details Address: [address] [place] [address] State: [place] City: [place] Zip code: [address] Past Medical History Allergies Allergen Reaction Date Comments Reported Other allergy 06/26/2016 levaquin, zosyn, gentamycin, sulfa, lodine Other allergy 06/01/2017 Sulfa, Zosyn, gentamycin, Levaquin, Lodine, Plavix, Amledpine. Admission Admission Data Admission Date: 07/22/2018 Admission Time: 7:30 Procedure Procedure Types Cath Procedure Diagnostic Procedure LHC LH w/Coronaries FFR/IVUS Intra-Coronary IVUS Initial Sedation Charges Moderate Sedation up to 15 minutes PCI Procedure Coronary Stent Coronary Stent Initial x2 Procedure Description Procedure Date Procedure Date: 07/22/2018 Procedure Start Time: 9:04 Procedure End Time: 9:26 Procedure Staff Name Function Emigdio Valerio MD Performing Physician Meme Moreno RT Scrub Curt Hirsch RT Scrub Jimmy Capone RN Nurse Elle Burnette RT Monitor Procedure Data Cath Procedure Fluoroscopy Diagnostic fluoroscopy Total fluoroscopy Time: 6.1 time: 6.1 min min Diagnostic fluoroscopy Total fluoroscopy dose: dose: 1716 mGy 1716 mGy Contrast Material Contrast Material Type Amount (ml) Isovue 300 128 Entry Location Entry Primary Successful Side Size Upsize Upsize Entry Closure Mccarthy ccessful Closure Location (Fr) 1 (Fr) 2 (Fr) Remarks Device Remarks Radial Right 6 Fr Mechanical artery Short Compression Estimated blood loss: 10 ml Diagnostic catheters Device Type Used For End Catheter Placement DIAGNOSTIC Lawtell 110cm 5 Procedure Fr catheter ([id number]) Procedure Complications No complications Procedure Medications Medication Administration Route Dosage Oxygen etCO2 Nasal cannula 2 l/min Lidocaine 2% added to field 20 Heparin Flush Bag added to field 2 bags (1000units/500ml NS) 0.9% NaCl I.V. 100 ml/hr Versed I.V. 2 mg Fentanyl I.V. 100 mcg Versed I.V. 1 mg Fentanyl I.V. 50 mcg Radial Cocktail I.A. 1 syringe (Verapomil 2mg/Nitro 400mcg/Heparin 1500units) Versed I.V. 2 mg Fentanyl I.V. 100 mcg Heparin Bolus I.V. 5000 units Integrilin (Bolus I.V. 11.3 ml 2mg/ml) Versed I.V. 1 mg Fentanyl I.V. 50 mcg Effient P.O. 60 mg Hemodynamics Rest Heart Rate: 60 (bpm) Snapshots Pre Cath Intra NCS Post Cath Vital Signs Time Heart Resp SPO2 etCO2 NIBP (mmHg) Rhythm Pain Status Sedation Rate (ipm) (%) (mmHg) Level (bpm) 8:45:23 62 26 97 32.1 141/81(107) NSR 0 (11) , No 10(A) pain 8:49:35 56 12 99 25.2 145/88(117) NSR 0 (11) , No 10(A) pain 8:53:46 58 18 100 42.1 151/91(113) NSR 0 (11) , No 10(A) pain 8:58:00 67 15 99 38.3 139/90(121) NSR 4 (11) , 10(A) Distressing 9:03:04 73 12 96 47.5 157/86(111) NSR 0 (11) , No 10(A) pain 9:07:22 83 14 94 41.3 136/77(102) NSR 0 (11) , No 9(A) pain 9:11:36 75 15 97 26.8 135/80(102) NSR 0 (11) , No 9(A) pain 9:15:50 82 16 94 45.2 119/78(108) NSR 0 (11) , No 10(A) pain 9:20:47 89 16 100 43.7 128/85(115) NSR 0 (11) , No 10(A) pain 9:24:54 88 15 100 43.7 138/83(112) NSR 0 (11) , No 10(A) pain Medications Time Medication Route Dose Verified Delivered Reason Note s Effectiveness by by 8:47:35 Oxygen etCO2 2 l/min Emigdio Marquez used for Nasal Teodoro Capone RN procedure cannula 8:47:41 Lidocaine 2% added 20ml Emigdio Beal for local to vial Teodoro Valerio MD anesthetic field 8:47:47 Heparin Flush added 2 bags Emigdio Beal used for Bag to Teodoro Valerio MD procedure (1000units/500ml field NS) 8:49:39 0.9% NaCl I.V. 100 Emigdio Garciaie Per physician ml/hr Teodoro Capone RN 8:51:05 Versed I.V. 2 mg Emigdio Marquez for sedation Teodoro Capone RN 8:51:11 Fentanyl I.V. 100 mcg Emigdio Marquez for sedation Teodoro Capone RN 8:58:27 Versed I.V. 1 mg Emigdio Marquez for sedation Teodoro Capone RN 8:58:30 Fentanyl I.V. 50 mcg Emigdio Marquez for sedation Teodoro Capone RN 9:05:34 Versed I.V. 2 mg Emigdio Beal for sedation Teodoro Valerio MD 9:05:38 Fentanyl I.V. 100 mcg Emigdio Beal for sedation Teodoro Valerio MD 9:05:58 Radial Cocktail I.A. 1 Emigdio Beal for (Verapomil syringe Teodoro Valerio MD vasodilation 2mg/Nitro 400mcg/Heparin 1500units) 9:13:22 Heparin Bolus I.V. 5000 Emigdio Marquez for veri fied units Teodoro Capone RN anticoagulation with dr valerio 9:14:34 Integrilin I.V. 11.3 ml Emigdio Marquez for wast ed (Bolus 2mg/ml) Teodoro Capone RN antiplatelet 8.7 ml therapy of vial 9:18:34 Versed I.V. 1 mg Emigdio Marquez for sedation Teodoro Capone RN 9:18:37 Fentanyl I.V. 50 mcg Emigdio Marquez for sedation Teodoro Capone RN 9:26:21 Effient P.O. 60 mg Emigdio Marquez for Teodoro Capone RN antiplatelet therapy Procedure Log Time Note 8:29:52 Diagnostic Cath Status : Elective 8:30:10 Jimmy Capone RN sent for patient. Start room use. 8:30:11 Time tracking: Regular hours (M-F 7:00 - 5:00) 8:30:16 Plan of Care:Hemodynamics will remain stable., Cardiac rhythm will remain stable., Comfort level will be maintained., Respiratory function will remain adequate., Patient/ family verbilizes understanding of procedure., Procedure tolerated without complication., Recovers from procedure without complications.. 8:37:48 Patient received from Pre/Post Procedure Room to CCL 1 Alert and oriented. Tansferred to table in Supine position. 8:37:49 Warm blankets applied, and rekha hugger turned on for patient comfort. 8:37:50 Correct patient and procedure confirmed by team. 8:37:51 Signed procedure consent form obtained from patient. 8:37:52 ECG and BP/O2 sat monitors applied to patient. 8:44:10 Vital chart was started 8:44:12 Baseline sample Acquired. 8:44:33 Rhythm: sinus rhythm 8:44:35 Full Disclosure recording started 8:44:58 H&P Date Dictated: 07/05/2018 Within 30 days and on chart., H&P Addendum completed by physician on day of procedure. (MUST COMPLETE FOR ALL OUTPATIENTS). 8:44:59 Pre-procedure instructions explained to patient. 8:44:59 Pre-op teaching completed and patient verbalized understanding. 8:45:01 Family in waiting room. 8:45:26 Patient NPO since Midnight. 8:45:29 Is the patient allergic to Iodine/contrast media? No. 8:45:35 Is patient on blood thinner?No 8:45:41 Patient diabetic? No. 8:45:48 Previous problem with sedation/anesthesia? No ? 8:45:55 Snore? Yes 8:45:57 Sleep apnea? Yes 8:45:59 Deviated septum? No 8:46:00 Opens mouth fully? Yes 8:46:00 Sticks out tongue? Yes 8:46:04 Airway obstruction? No ? 8:46:09 Dentures? No ? 8:46:13 Pre procedure: right dorsailis pedis pulse 1+ Palpable, but thready & weak; easily obliterated 8:46:19 Patient pain scale 0/10 ?. 8:46:31 IV patent on arrival in left forearm with 0.9% NaCl at [facility]. 8:46:33 Lab results completed and on chart. 8:46:38 Right Radial & Right Groin area was prepped with chlora-prep and draped in sterile fashion 8:46:40 Alarms reviewed by R. N. 8:46:40 Sharps counted by scrub and verified by R.N. 8:46:53 Use device set Radial Dx or PCI 8:46:56 Tegaderm 4 x 4 (1626W) opened to sterile field. 8:46:57 ACIST Manifold (67795) opened to sterile field. 8:46:57 ACIST Hand Control (98384) opened to sterile field. 8:46:58 Bag Decanter (2002S) opened to sterile field. 8:46:59 ACIST Syringe (60622) opened to sterile field. 8:47:00 Medline Cath Pack ([id number]) opened to sterile field. 8:47:00 DIAGNOSTIC WIRE .035 260cm J wire (560336) opened to sterile field. 8:47:01 MBrace Wrist Support (400703836) opened to sterile field. 8:47:03 SHEATH 6FR Slender (13-9697) opened to sterile field. 8:47:35 Oxygen 2 l/min etCO2 Nasal cannula was administered by Jimmy Capone RN; used for procedure; 8:47:41 Lidocaine 2% 20ml vial added to field was administered by Emigdio Valerio MD; for local anesthetic; 8:47:47 Heparin Flush Bag (1000units/500ml NS) 2 bags added to field was administered by Emigdio Valerio MD; used for procedure; 8:48:17 Physician arrived 8:48:17 --------ALL STOP TIME OUT------ 8:48:21 Final Timeout: patient, procedure, and site verified with staff and physician. All members of the team are in agreement. 8:48:23 Right groin site verified by team. 8:48:30 Fire Safety Assessment: A--An alcohol-based skin anteseptic being used preoperatively., C--Open oxygen or nitrous oxide is being used., D--An ESU, laser, or fiber-optic light is being used. 8:48:36 Physical assessment completed. ASA score P 2 - A patient with mild systemic disease as per Emigdio Valerio MD. 8:48:40 Sedation plan: IV Moderate Sedation Medication:Versed, Fentanyl 8:49:39 0.9% NaCl 100 ml/hr I.V. was administered by Jimmy Capone RN; Per physician; 8:51:05 Versed 2 mg I.V. was administered by Jimmy Capone RN; for sedation; 8:51:11 Fentanyl 100 mcg I.V. was administered by Jimmy Capone RN; for sedation; 8:58:27 Versed 1 mg I.V. was administered by Jimmy Capone RN; for sedation; 8:58:30 Fentanyl 50 mcg I.V. was administered by Jimmy Capone RN; for sedation; 9:03:07 Procedure started. 9:04:20 Local anesthetic to right radial artery with Lidocaine 2% by Emigdio Valerio MD.INITIAL ACCESS ONLY 9:04:53 A 6 Fr Short sheath was inserted into the Right Radial artery 9:05:34 Versed 2 mg I.V. was administered by Emigdio Valerio MD; for sedation; 9:05:38 Fentanyl 100 mcg I.V. was administered by Emigdio Valerio MD; for sedation; 9:05:58 Radial Cocktail (Verapomil 2mg/Nitro 400mcg/Heparin 1500units) 1 syringe I.A. was administered by Emigdio Valerio MD; for vasodilation; 9:06:01 A DIAGNOSTIC Lawtell 110cm 5 Fr catheter ([id number]) was advanced over the wire and used for Procedure. 9:06:04 LV angiography performed. 9:06:54 EF : 50 % 9:07:46 LCA angiography performed. 9:08:13 RCA angiography performed. 9:08:28 GUIDE 6FR XBLAD 3.5 catheter ([id number]) opened to sterile field. 9:11:42 6 Fr XBLAD guide catheter was inserted over the wire 9:13:22 Heparin Bolus 5000 units I.V. was administered by Jimmy Capone RN; for anticoagulation; verified with dr valerio 9:13:37 Wire advanced across lesion. 9:13:55 IVUS catheter advanced over wire. 9:14:34 Integrilin (Bolus 2mg/ml) 11.3 ml I.V. was administered by Jimmy Capone RN; for antiplatelet therapy; wasted 8.7 ml of vial 9:17:02 [place] IVUS Catheter (14195J) opened to sterile field. 9:17:03 IVUS catheter removed over wire. 9:17:06 INFLATOR Merit BasixCompak (QK6653) opened to sterile field. 9:17:07 CHOICE PT Extra Support 182cm wire ([id number]) opened to sterile field. 9:17:33 Place stent Inflation Number: 1 A INTEGRITY RX 2.5 x 22 stent ([id number]) was prepped and advanced across the Ramus. The stent was deployed at 17 CARMEL for 0:10 (min:sec). 9:17:50 Stent catheter was removed intact over wire. 9:17:50 Wire removed. 9:17:51 Guide catheter removed. 9:18:34 Versed 1 mg I.V. was administered by Jimmy Capone RN; for sedation; 9:18:37 Fentanyl 50 mcg I.V. was administered by Jimmy Capone RN; for sedation; 9:18:40 GUIDE 6FR AR 2.0 catheter ([id number]) opened to sterile field. 9:18:51 6 Fr AR2 guide catheter was inserted over the wire 9:19:03 choice pt ex wire advanced. 9:20:23 Wire advanced across lesion. 9:21:47 Inflate balloon Inflation number: 1 A INTEGRITY RX 3.5 x 15 stent ([id number]) was prepped and advanced across the Mid RCA, then inflated to 15 CARMEL for 0:09 (min:sec). 9:22:12 Stent catheter was removed intact over wire. 9:22:13 Wire removed. 9:22:14 Guide catheter removed. 9:22:45 Sheath removed intact; hemostasis achieved with Mechanical Compression to the Right Radial artery. 9:23:52 Procedure ended.(Physican Out) 9:24:05 Fluoroscopy time 06.10 minutes. 9:24:11 Fluoroscopy dose: 1716 mGy 9:24:11 Flurop Dose total: 1716 9:24:16 Contrast amount:Isovue 300 128ml. 9:24:17 Sharps counted by scrub and verified by R.N. 9:24:34 ZEPHYR LARGE TR BAND NO COST(418522) opened to sterile field. 9:25:03 TR band inflated with 13cc of air. 9:25:04 Insertion/operative site no bleeding no hematoma. 9:25:09 Post-procedure physical assessment completed. ASA score P 2 - A patient with mild systemic disease as per Emigdio Valerio MD. 9:25:15 Post procedure rhythm: sinus rhythm 9::18 Estimated blood loss: 10 ml 9:25:19 Post procedure instruction explained to patient.Patient verbalizes understanding. 9:25:44 Procedure type changed to Cath procedure, Diagnostic procedure, LHC, LHC w/Coronaries, FFR/IVUS, Intra-Coronary IVUS Initial, Sedation Charges, Moderate Sedation up to 15 minutes, PCI procedure, Coronary Stent, Coronary Stent Initial x2 9:25:46 Procedure and supply charges have been captured, reviewed, submitted and are correct. 9:26:13 Procedure Complication : No complications 9:26:15 Vital chart was stopped 9:26:18 See physician's report for complete and final results. 9:26:20 Report given to Pre/Post Procedure Room. 9:26:21 Effient 60 mg P.O. was administered by Jimmy Capone RN; for antiplatelet therapy; 9:26:25 Patient transfered to Pre/Post Procedure Room with Stretcher. 9:26:27 Procedure ended. 9:26:27 Full Disclosure recording stopped 9:26:36 ACC-PCI Only Patient was given prescriptions, or instructed by Emigdio Valerio MD to start/continue the following medications upon discharge: Effient 9:27:57 End room use (Document Last) Intervention Summary Intervention Notes Time ActionType Lesion and Equipment Action# Pressure Duration Attributes Used 9:17:33 Place stent Ramus INTEGRITY RX 1 17 00:10 2.5 x 22 stent ([id number]) 9:21:47 Inflate Mid RCA INTEGRITY RX 1 15 00:09 balloon 3.5 x 15 stent ([id number]) Device Usage Item Name Manufacture Quantity Catalog Number Hospital Part Current Mini mal Lot# / Charge Number Stock Stock Serial# Code Tegaderm 4 x 3M 1 1626W [id number] 943878 [id number] 5 4 (1626W) ACIST Acist 1 05322 938312 185792 234764 5 Manifold Medical (77466) Systems Inc ACIST Hand Acist 1 57322 126641 117833 399077 5 Control Medical (95233) Systems Inc Bag Decanter Microtek 1 2001S 790990 34983 979371 5 (2001S) Medical Inc. ACIST Acist 1 20754 105025 514699 200714 20 Syringe Medical (73548) Systems Inc Medline Cath Medline 1 [id number] 228426 59268 292763 5 Pack ([id number]) DIAGNOSTIC [facility] 1 374089 151588 095753 894656 30 WIRE .035 260cm J wire (680573) MBrace Wrist Advanced 1 140-0250-00 439573 08644 499024 5 Support Vascular (734496231) Dynamics SHEATH 6FR Terumo 1 [id number] 354174 282356 443011 5 Slender (80-1060) DIAGNOSTIC Terumo 1 40-3253 723427 032609 571584 5 Lawtell 110cm 5 Fr catheter (462009) GUIDE 6FR Cardinal 1 13080932 425919 228080 867158 10 XBLAD 3.5 Health catheter (64337874) [place] 1 38306V 743779 717745 530871 8 [place] IVUS Catheter (90126R) INFLATOR [facility] 1 ZD0600 448322 348295 181649 15 [facility] Medical BasixCompak (BO6705) CHOICE PT Equality 1 [id number] 708932 555418 887606 5 Extra Scientific Support 182cm wire ([id number]) INTEGRITY RX Medtronic 1 [id number] 800399 705797 394751 5 [id number] 2.5 x 22 stent ([id number]) GUIDE 6FR AR Medtronic 1 [id number] 318919 51948 650168 1 2.0 catheter (PK2SM10) INTEGRITY RX Medtronic 1 [id number] 617102 825585 639947 5 [id number] 3.5 x 15 stent ([id number]) ZEPHYR LARGE Cardinal 1 189430 330160 122809 5 TR BAND NO Health COST(637817) Signature Audit [place] Stage Time Signature Unsigned Intra-Procedure 07/22/2018 Elle Burnette 9:31:56 AM RT(R) Signatures Monitor : Elle Burnette Signature : RT Date : Time : [facility] [address] [place] [address]
[2018-07-22 07:47] VITALS: BP 139/78; Ht 167.6 cm; Wt 136.4 kg
[2018-07-22] MEDS ORDERED: AVAPRO150 MG PO (07:52)
[2018-07-22 08:00] LABS: BASOPHILS 0.7 % (0-2); EOSINOPHILS 6.5 % (0-7); HEMATOCRIT 42.1 % (42.0-54.0); HEMOGLOBIN 14.3 g/dL (13.5-17.5); IMMATURE GRANULOCYTES 0.4 % (0-5); MCH 31.8 pg (26.0-34.0); MCV 93.8 fL (80.0-100.0); MEAN PLATELET VOLUME 9.8 fL (7.4-10.4); MONOCYTES 7.9 % (2-11); NEUTROPHILS 45.5 % (40-80); PLATELET COUNT 195 10x3/uL (130-400); RBC 4.49 10x6/uL (4.20-6.10); WBC 5.7 10x3/uL (4.8-10.8)
[2018-07-22 08:06] LABS: CALC OSMOLALITY 284 mosm/kg (275-300); CALCIUM 8.7 mg/dL (8.5-10.1); CARBON DIOXIDE 25.8 mmol/L (21.0-32.0); CHLORIDE - SERUM 105 mmol/L (98-107); CREATININE - SERUM 1.1 mg/dL (0.6-1.3); GLUCOSE 103 mg/dL (74-106); POTASSIUM - SERUM 4.1 mmol/L (3.5-5.1); SODIUM 142 mmol/L (136-145); UREA NITROGEN 17 mg/dL (7-18); eGFR NON AFRICAN AMERICAN 75 mL/min (90-120)
[2018-07-22] MEDS ORDERED: EFFIENT10 MG PO (09:47)
--- NOTE | 2018-07-22 09:55 | NUR ---
ROOM AIR, NO RESP DISTRESS. RIGHT WRIST TR BAND CDI, NO BLEEDING OR HEMATOMA NOTED. NO C/O PAIN OR NAUSEA. VSS. FAMILY AT BEDSIDE, CALL LIGHT WITHIN REACH.
--- NOTE | 2018-07-22 10:25 | NUR ---
RIGHT WRIST TR BAND CDI, NO BLEEDING OR HEMATOMA NOTED. ROOM AIR WITH NO RESP DISTRESS. NO C/O PAIN OR NAUSEA. VSS. WILL CONTINUE TO MONITOR.
--- NOTE | 2018-07-22 10:40 | NUR ---
RESTING QUIETLY WITH EYES CLOSED. RIGHT WRIST TR BAND CDI, NO BLEEDING OR HEMATOMA NOTED. NO NEEDS VOICED. VSS. CALL LIGHT WITHIN REACH.
--- NOTE | 2018-07-22 11:10 | NUR ---
CONTINUES TO REST COMFORTABLY WITH NO C/O. RIGHT WRIST TR BAND CDI, NO BLEEDING OR HEMATOMA NOTED. NO NEEDS VOICED. VSS. WILL CONTINUE TO MONITOR CLOSELY.
--- NOTE | 2018-07-22 11:40 | NUR ---
RIGHT WRIST TR BAND CDI, NO BLEEDING OR HEMATOMA NOTED. NO C/O AT THIS TIME. VSS. CALL LIGHT WITHIN REACH.
--- NOTE | 2018-07-22 12:20 | NUR ---
3CC OF AIR REMOVED FROM TR BAND WITH NO BLEEDING NOTED. VSS. WILL CONTINUE TO MONITOR.
--- NOTE | 2018-07-22 12:35 | NUR ---
3CC OF AIR REMOVED FROM TR BAND WITH NO BLEEDING NOTED.
--- NOTE | 2018-07-22 12:50 | NUR ---
3CC OF AIR REMOVED FROM TR BAND WITH NO BLEEDING NOTED. LEFT PIV D/C'D WITH CATHETER INTACT, BAND AID TO SITE. UP TO BEDSIDE TO GET DRESSED.
--- NOTE | 2018-07-22 13:00 | NUR ---
REMAINING AIR REMOVED FROM TR BAND WITH NO BLEEDING NOTED. DRESSING PLACED TO SITE. DISCHARGE INSTRUCTIONS GIVEN ALONG WITH EFFIENT PRESCRIPTION. VERBALIZED UNDERSTANDING.
--- NOTE | 2018-07-22 13:13 | NUR ---
TAKEN OUT VIA WHEELCHAIR BY CATH GAS UTILITY WORKER. LEFT FACILITY WITH FAMILY AND ALL PERSONAL BELONGINGS.
--- NOTE | 2018-07-26 10:45 | OP ---
PATIENT NAME: SUGAR LEONE MEDICAL RECORD: [id number] :68 LOCATION:D.CAT ADMISSION DATE: SURGEON: BRYSON DIAZ MD DATE OF OPERATION: 07/22/2018 PROCEDURES: 1. PTCA stent left circumflex, ramus intermedius. 2. PTCA stent RCA. 3. Intravascular ultrasound. 4. Left heart catheterization. 5. Selective coronary angiography. 6. Left ventriculogram. DESCRIPTION OF PROCEDURE: After informed consent was obtained and after a detailed description of risks, benefits as well as alternative therapies, the patient elected to proceed with angiogram and angioplasty. The right radial area was prepped and draped in normal sterile fashion. Right radial artery was cannulated via modified Seldinger technique with placement of 6-Yoruba sheath. All catheters exchanged through this sheath. FINDINGS: The left ventriculogram was performed in standard 30-degree STEPHENS view, reveals good cardiac wall motion throughout all segments. Overall ejection fraction estimated 50%. SELECTIVE CORONARY ANGIOGRAPHY: 1. Left main is with no significant angiographic disease. 2. Left anterior descending has moderate irregularities, but no flow-limiting stenosis. 3. The left circumflex has an early obtuse marginal or ramus intermedius with greater than 80% stenosis confirmed by intravascular ultrasound. 4. Right coronary artery has 80% stenosis in the mid vessel. PTCA STENT OF THE RAMUS INTERMEDIUS: The left circumflex was addressed with a 2.5 x 22 mm Integrity stent. Result was 0% residual stenosis. PTCA STENT OF THE RCA: RCA was addressed with a 3.5 x 15 mm Integrity. Result was 0% residual stenosis. OVERALL IMPRESSION: Successful percutaneous transluminal coronary angioplasty stent of the left circumflex and right coronary artery, both going from greater than 80% initial stenosis to 0% residual. TRANSINT:[id number] Voice Confirmation ID: [id number] DOCUMENT ID: [id number] BRYSON DIAZ MD at 1045 CC: [id number] DICTATION DATE: 07/22/18926 SENIOR SCHEDULER: 07/22/18 1121 DEP CLI 07/22/18 [place] [address]
== END 2018-07-22 13:13 | disposition home or self-care (01) ==
LOC: D.CATH 07:30
PROVIDERS: Internal Medicine Interventional Cardiology
DX: I25.119 Atherosclerotic heart disease of native coronary artery with unspecified angina pectoris (principal); Z01.812 Encounter for preprocedural laboratory examination

== ENCOUNTER → 2019-05-31 08:06 | Outpatient (CLI) | payer BC ==
[2018-07-22 07:47] VITALS: BMI 48.5
--- NOTE | 2019-06-01 15:25 | ST ---
PATIENT:SUGAR LEONE MEDICAL RECORD: [id number] SEX: M LOCATION:[facility] ORDER #: ADMISSION DATE: 05/31/19 AGE OF PATIENT: 49 REFERRING PHYSICIAN: INTERPRETING PHYSICIAN: BRYSON DIAZ MD DATE OF SERVICE: 05/31/2019 PROCEDURE: Nuclear stress test. INDICATION: Angina and coronary artery disease, shortness of breath, hypertension, and hyperlipidemia. The patient was exercised on standard Lexiscan protocol with 27 mCi of sestamibi injected at peak stress, 9 mCi used previously for rest images. FINDINGS: Gated SPECT reveals preserved ejection fraction at 63% with good wall motioning and thickening and brightening throughout all segments. SPECT imaging: Cardiolite was used as myocardial perfusion agent. There are reversible changes anteriorly, apically, inferiorly and inferolaterally. This includes the basal, mid, apical, inferior segments as well as inferolateral segments. OVERALL IMPRESSION: This is a high risk markedly abnormal nuclear stress test. Reversible ischemia throughout the anterior, apical, inferior, inferolateral suggestive of multivessel coronary artery disease. TRANSINT:[id number] Voice Confirmation ID: [id number] DOCUMENT ID: [id number] BRYSON DIAZ MD at 1525 CC: NIKI GOODEN [id number] DICTATION DATE: 05/31/19 1608 LINEN KEEPER: 06/01/19 0717 [facility] CLI 05/31/[address] [address]
== END | disposition home or self-care (01) ==
LOC: D.HCCARDIO 08:06
PROVIDERS: ATTEND Internal Medicine Interventional Cardiology
DX: I25.10 Atherosclerotic heart disease of native coronary artery without angina pectoris (principal)

== ENCOUNTER 2019-06-13 07:33 | Outpatient (CLI) | payer BC ==
[~2019-06-13] VITALS: Ht 167.6 cm; Wt 138.6 kg
--- NOTE | ~2019-06-13 | HEMODYNAMI ---
PATIENT:SUGAR LEONE MEDICAL RECORD: [id number] : 68 LOCATION:D.CAT ADMISSION DATE: 06/13/19 Generatedon:06/13/201910:38 Patient name: SUGAR LEONE Patient #: [id number] : 1970 Date of study: 06/13/2019 Page: Of Hemodynamic Procedure Report Patient Data Patient Demographics Procedure consent was obtained First Name: SUGAR Gender: Male Last Name: SULEMA : 1970 Middle Initial: EARNESTINE Age: 49 year(s) Patient #: [id number] Race: Unknown SSN: [id number] Additional ID: [id number] Contact details Address: [address] [place] [address] State: [place] City: [place] Zip code: [address] Past Medical History Allergies Allergen Reaction Date Comments Reported Other allergy 06/26/2016 levaquin, zosyn, gentamycin, sulfa, lodine Other allergy 06/01/2017 Sulfa, Zosyn, gentamycin, Levaquin, Lodine, Plavix, Amledpine. Other allergy 06/13/2019 plavix Admission Admission Data Admission Date: 06/13/2019 Admission Time: 7:33 Arrival Date: 06/13/2019 Arrival Time: 0:00 Insurance Payor: Private health insurance [facility] #: [id number] Height (in.): 66 BSA: 2.43 (m2) Height (cm.): 167.64 BMI: 51 (kg/m2) Weight (lbs.): 316 Weight (kg.): 143.34 Lab Results Lab Result Date: 06/13/2019 Lab Result Time: 0:00 Biochemistry Name Units Result Min Max BUN mg/dl 19 --(----)*- 7 18 Creatinine mg/dl 1.1 --(--*-)-- 0.6 1.3 CBC Name Units Result Min Max Hemoglobin g/dl 14.4 --(*---)-- 13.5 17.5 Procedure Procedure Types Cath Procedure Diagnostic Procedure [facility] w/Coronaries Sedation Charges Moderate Sedation up to 15 minutes Procedure Description Procedure Date Procedure Date: 06/13/2019 Procedure Start Time: 10:24 Procedure End Time: 10:36 Procedure Staff Name Function Emigdio Valerio MD Performing Physician Elle Burnette RT Monitor Brigid Jonas RN Nurse Meme Moreno RT Scrub Indication Angina Dyspnea Procedure Data Cath Procedure Fluoroscopy Diagnostic fluoroscopy Total fluoroscopy Time: 1.7 time: 1.7 min min Diagnostic fluoroscopy Total fluoroscopy dose: dose: 1171 mGy 1171 mGy Contrast Material Contrast Material Type Amount (ml) Isovue 300 77 Entry Location Entry Primary Successful Side Size Upsize Upsize Entry Closure Mccarthy ccessful Closure Location (Fr) 1 (Fr) 2 (Fr) Remarks Device Remarks Radial Right 6 Fr Mechanical artery Short Compression Estimated blood loss: 10 ml Diagnostic catheters Device Type Used For End Catheter Placement DIAGNOSTIC Ephraim 110cm 5 Procedure Fr catheter ([id number]) Procedure Complications No complications Procedure Medications Medication Administration Route Dosage 0.9% NaCl I.V. 100 ml/hr Oxygen etCO2 Nasal cannula 2 l/min Lidocaine 2% added to field 20 Heparin Flush Bag added to field 2 bags (1000units/500ml NS) Radial Cocktail added to field 1 syringe (Verapamil 2mg/Nitro 400mcg/Heparin 1500units) Versed I.V. 2 mg Fentanyl I.V. 50 mcg Versed I.V. 2 mg Fentanyl I.V. 50 mcg Versed I.V. 2 mg Fentanyl I.V. 50 mcg Hemodynamics Rest BSA: 2.43 (m2) HGB: 14.4 (g/dl) O2 Consumption: Estimated: 285.51 (ml/min) O2 Co nsumption indexed: Estimated:117.49 (ml/min/m) Heart Rate: 64 (bpm) Snapshots Pre Cath Intra NCS Post Cath Vital Signs Time Heart Resp SPO2 etCO2 NIBP (mmHg) Rhythm Pain Sedation Rate (ipm) (%) (mmHg) Status Level (bpm) 10:08:54 62 19 100 39 148/78(114) NSR 0 (11) 10(A) , No pain 10:13:18 64 16 100 36.9 149/80(112) NSR 0 (11) 10(A) , No pain 10:17:43 63 16 100 40.7 147/76(104) NSR 0 (11) 10(A) , No pain 10:22:09 68 16 100 45.3 134/78(99) NSR 0 (11) 10(A) , No pain 10:26:27 79 17 98 46 127/87(109) NSR 0 (11) 10(A) , No pain 10:30:45 78 14 97 34.7 134/85(119) NSR 0 (11) 10(A) , No pain 10:35:07 71 15 96 33.9 136/83(124) NSR 0 (11) 10(A) , No pain Medications Time Medication Route Dose Verified Delivered Reason Notes E ffectiveness by by 10:07:47 0.9% NaCl I.V. 100 Emigdio Brigid used for ml/hr Teodoro Jonas supervisor policy change clerks 10:07:53 Oxygen etCO2 2 l/min Emigdio Brigid used for Nasal Teodoro Jonas procedure cannula RN 10:07:57 Lidocaine 2% added 20ml Emigdio Emigdio for local to vial Teodoro Valerio MD anesthetic field 10:08:01 Heparin Flush added 2 bags Emigdio Emigdio used for Bag to Teodoro Valerio MD procedure (1000units/500ml field NS) 10:08:09 Radial Cocktail added 1 Emigdio Emigdio used for (Verapamil to syringe Teodoro Valerio MD procedure 2mg/Nitro field 400mcg/Heparin 1500units) 10:22:05 Versed I.V. 2 mg Emigdio Brigid for Teodoro Jonas sedation RN 10:22:17 Fentanyl I.V. 50 mcg Emigdio Brigid for Teodoro Jonas sedation RN 10:26:20 Versed I.V. 2 mg Emigdio Brigid for Teodoro Jonas sedation RN 10:26:29 Fentanyl I.V. 50 mcg Emigdio Brigid for Teodoro Jonas sedation RN 10:30:38 Versed I.V. 2 mg Emigdio Brigid for Teodoro Jonas sedation RN 10:30:45 Fentanyl I.V. 50 mcg Emigdio Brigid for Teodoro Jonas sedation corporate director talent assessment Log Time Note 9:56:08 Patient Height : 66 inches 9:56:11 Patient Weight : 316 lbs 9:56:13 Arrival Date: 06/13/2019 12:00:00 AM 9:56:45 Insurance Payor : Private health insurance 9:57:12 Lab Result : Hemoglobin 14.4 g/dl 9:57:12 Lab Result : Creatinine 1.1 mg/dl 9:57:12 Lab Result : BUN 19 mg/dl 9:57:48 Indication : Angina 9:57:56 Indication : Dyspnea 9:58:00 Diagnostic Cath Status : Elective 9:58:20 Procedure Status Elective Heart Cath (OP). 9:58:23 Brigid Jonas RN sent for patient. Start room use. 9:58:24 Time tracking: Regular hours (M-F 7:00 - 5:00) 9:58:30 Plan of Care:Hemodynamics will remain stable., Cardiac rhythm will remain stable., Comfort level will be maintained., Respiratory function will remain adequate., Patient/ family verbilizes understanding of procedure., Procedure tolerated without complication., Recovers from procedure without complications.. 10:01:25 2) 60-89 Mildly reduced kidney function, and other findings (as for stage 1) point to kidney disease. 10:01:52 Maximum allowable contrast dose (3.7 X eGFR X 0.75)208 ml. 10:03:11 Patient received from Pre/Post Procedure Room to [facility] 2 Alert and oriented. Tansferred to table in Supine position. 10:03:21 Signed procedure consent form obtained from patient. 10:03:22 Warm blankets applied, and rekha hugger turned on for patient comfort. 10:03:23 Correct patient and procedure confirmed by team. 10:03:24 ECG and BP/O2 sat monitors applied to patient. 10:03:45 H&P Date Dictated: 05/22/2019 Within 30 days and on chart., H&P Addendum completed by physician on day of procedure. (MUST COMPLETE FOR ALL OUTPATIENTS). 10:03:48 Pre-procedure instructions explained to patient. 10:03:49 Family in waiting room. 10:03:52 Patient NPO since Midnight. 10:07:39 Vital chart was started 10:07:47 0.9% NaCl 100 ml/hr I.V. was administered by Brigid Jonas RN; used for procedure; Verbal order read back and verified. 10:07:53 Oxygen 2 l/min etCO2 Nasal cannula was administered by Brigid Jonas RN; used for procedure; Verbal order read back and verified. 10:07:57 Lidocaine 2% 20ml vial added to field was administered by Emigdio Valerio MD; for local anesthetic; Verbal order read back and verified. 10:08:01 Heparin Flush Bag (1000units/500ml NS) 2 bags added to field was administered by Emigdio Valerio MD; used for procedure; Verbal order read back and verified. 10:08:09 Radial Cocktail (Verapamil 2mg/Nitro 400mcg/Heparin 1500units) 1 syringe added to field was administered by Emigdio Valerio MD; used for procedure; Verbal order read back and verified. 10:15:12 Patient allergic to Other allergyplavix 10:15:22 Was the patient premedicated? Yes 10:15:24 Is the patient allergic to Iodine/contrast media? No. 10:15:26 Is patient on blood thinner?No 10:15:28 Patient diabetic? No. 10:16:02 Previous problem with sedation/anesthesia? No ? 10:16:04 Snore? Yes 10:16:05 Sleep apnea? Yes 10:16:12 Patient pain scale 0/10 ?. 10:16:19 IV patent on arrival in left forearm with 0.9% NaCl at [facility]. 10:16:22 Lab results completed and on chart. 10:16:43 Stress Test: yes; abnormal multi 10:16:49 Risk of Mortality: .1 10:16:52 Risk of blood transfusion: .1 10:16:55 Risk of EZEQUIEL: .2 10:17:18 Right Radial & Right Groin area was prepped with chlora-prep and draped in sterile fashion 10:17:20 Alarms reviewed by R. N. 10:17:21 Sharps counted by scrub and verified by R.N. 10:17:30 Baseline sample Acquired. 10:17:43 Rhythm: sinus rhythm 10:17:50 Full Disclosure recording started 10::44 Physician arrived 10::44 --------ALL STOP TIME OUT------ 10:21:45 Final Timeout: patient, procedure, and site verified with staff and physician. All members of the team are in agreement. 10:21:48 Right Radial & Right Groin site verified by team. 10:21:52 Fire Safety Assessment: A--An alcohol-based skin anteseptic being used preoperatively., C--Open oxygen or nitrous oxide is being used., D--An ESU, laser, or fiber-optic light is being used. 10:21:56 Physical assessment completed. ASA score P 3 - A patient with severe systemic disease as per Emigdio Valerio MD. 10:22:01 Use device set Radial Dx or PCI 10:22:03 ACIST Syringe (73421) opened to sterile field. 10:22:03 Medline Cath Pack ([id number]) opened to sterile field. 10:22:04 Bag Decanter (2002S) opened to sterile field. 10:22:04 ACIST Hand Control (50324) opened to sterile field. 10:22:05 Versed 2 mg I.V. was administered by Brigid Jonas RN; for sedation; Verbal order read back and verified. 10:22:05 ACIST Manifold (76332) opened to sterile field. 10:22:05 Tegaderm 4 x 4 (1626W) opened to sterile field. 10:22:06 MBrace Wrist Support ([id number]) opened to sterile field. 10:22:08 EMERALD Guide Wire (841-512) opened to sterile field. 10:22:09 SHEATH 6FR RAIN (9531203) opened to sterile field. 10:22:17 Fentanyl 50 mcg I.V. was administered by Brigid Jonas RN; for sedation; Verbal order read back and verified. 10:24:10 Procedure started. 10:24:26 Local anesthetic to right radial artery with Lidocaine 2% by Emigdio Valerio MD.INITIAL ACCESS ONLY 10:24:35 A 6 Fr Short sheath was inserted into the Right Radial artery 10:25:05 J wire advanced. 10:25:19 A DIAGNOSTIC Ephraim 110cm 5 Fr catheter (053295) was advanced over the wire and used for Procedure. 10:25:26 LV angiography performed. 10:26:20 Versed 2 mg I.V. was administered by Brigid Jonas RN; for sedation; Verbal order read back and verified. 10:26:29 Fentanyl 50 mcg I.V. was administered by Brigid Jonas RN; for sedation; Verbal order read back and verified. 10:27:00 EF : 60 % 10:27:21 LCA angiography performed. 10:29:31 RCA angiography performed. 10:30:38 Versed 2 mg I.V. was administered by Brigid Jonas RN; for sedation; Verbal order read back and verified. 10:30:45 Fentanyl 50 mcg I.V. was administered by Brigid Jonas RN; for sedation; Verbal order read back and verified. 10:31:11 Catheter removed. 10:32:07 Sheath removed intact; hemostasis achieved with Mechanical Compression to the Right Radial artery. 10:32:10 Procedure ended.(Physican Out) 10:32:22 Fluoroscopy time 01.70 minutes. 10:32:28 Fluoroscopy dose: 1171 mGy 10:32:28 Flurop Dose total: 1171 10:32:47 Dose Area Product 71451 mGy/cm. 10:32:52 Contrast amount:Isovue 300 77ml. 10:32:54 Maximum allowable dose exceeded? No. 10:33:16 Insertion/operative site no bleeding no hematoma. 10:33:24 [place] band inflated with 0cc of air. 10:33:27 [place] band inflated with 10cc of air. 10:33:34 Post Procedure Pulses reassessed and unchanged 10:33:47 Post-procedure physical assessment completed. ASA score P 2 - A patient with mild systemic disease as per Emigdio Valerio MD. 10:33:59 Post procedure rhythm: unchanged. 10:34:04 Estimated blood loss: 10 ml 10:34:05 Post procedure instruction explained to patient.Patient verbalizes understanding. 10:34:55 Procedure type changed to Cath procedure, Diagnostic procedure, LHC, [facility] w/Coronaries, Sedation Charges, Moderate Sedation up to 15 minutes 10:34:57 Procedure and supply charges have been captured, reviewed, submitted and are correct. 10:35:14 Procedure Complication : No complications 10:35:20 Vital chart was stopped 10:35:39 [facility] Findings: mild to moderate CAD (<70%) 10:35:41 Operative report dictated upon procedure completion. 10:35:42 See physician's report for complete and final results. 10:35:46 Report given to Pre/Post Procedure Room. 10:36:06 Patient transfered to Pre/Post Procedure Room with Stretcher. 10:36:08 Procedure ended. 10:36:08 Full Disclosure recording stopped 10:36:14 End room use (Document Last) 10:36:42 End room use (Document Last) 10:37:39 End room use (Document Last) Device Usage Item Name Manufacture Quantity Catalog Hospital Part Current [facility] Lot# / Number Charge Number Stock Stock Serial# Code ACIST Acist 1 92049 [id number] 749544 249923 20 Syringe Medical (20597) Systems Inc Medline Medline 1 [id number] 240375 83359 674759 5 Cath Pack ([id number]) Bag Microtek 1 2001S 331962 33760 644230 5 Decanter Medical Inc. () ACIST Hand Acist 1 94474 030499 892972 685827 5 Control Medical (94345) Systems Inc ACIST Acist 1 96800 086836 451309 701153 5 Manifold Medical (37207) Systems Inc Tegaderm 4 3M 1 1626W 407639 076112 727730 5 x 4 (1626W) MBrace Advanced 1 140-0250-00 605181 80154 048855 5 Wrist Vascular Support Dynamics ([id number]) EMERALD Cardinal 1 869-022 782059 843571 371347 5 Guide [facility] (985-857) SHEATH 6FR Cardinal 1 1216815 881838 6608310 296601 5 [facility] (7752909) DIAGNOSTIC Terumo 1 18-0252 727088 205775 979632 5 Ephraim 110cm 5 Fr catheter (171637) Signature Audit [place] Stage Time Signature Unsigned Intra-Procedure 06/13/2019 Elle Burnette 10:36:42 AM RT(R) Intra-Procedure 06/13/2019 Brigid Jonas 10:37:39 AM RN Intra-Procedure 06/13/2019 Emigdio Valerio 10:38:37 AM Signatures Performing Physician : Signature : Emigdio Valerio MD Date : Time : Monitor : Elle Burnette Signature : RT Date : Time : Nurse : Brigid Jonas RN Signature : Date : Time : [place] [address] [place] [address]
--- NOTE | ~2019-06-13 | OP ---
PATIENT NAME: SUGAR LEONE MEDICAL RECORD: [id number] :68 LOCATION:D.CAT ADMISSION DATE: SURGEON: BRYSON DIAZ MD DATE OF OPERATION: 06/13/2019 PROCEDURES: 1. Left heart catheterization. 2. Selective coronary angiography. 3. Left ventriculogram. INDICATION: Angina and coronary artery disease. PROCEDURE IN DETAIL: After informed consent was obtained and after a detailed description of risks, benefits as well as alternative therapies, the patient elected to proceed with angiogram and heart catheterization. The right radial area was prepped and draped in normal sterile fashion. Right radial artery was cannulated via modified Seldinger technique with placement of 5-Kiswahili sheath. All catheters exchanged through this sheath. FINDINGS: The left ventriculogram was performed in standard 30-degree STEPHENS view, reveals good cardiac wall motion throughout all segments. Overall ejection fraction estimated 60%. SELECTIVE CORONARY ANGIOGRAPHY: 1. Left main: Left main is with no significant angiographic disease. 2. Left anterior descending has previously placed stents, these are widely patent with no significant restenosis. No disease elsewise throughout the LAD or its branches. 3. Left circumflex has mild irregularities, but no flow-limiting stenosis. 4. Right coronary has moderate irregularities, but no flow-limiting stenosis. OVERALL IMPRESSION: Wide patency of the previously placed stents, no disease elsewise. Continue medical management of the coronary artery disease and cardiac risk factors. TRANSINT:[id number] Voice Confirmation ID: [id number] DOCUMENT ID: [id number] BRYSON DIAZ MD CC: [id number] DICTATION DATE: 06/13/19 1033 RESIDENT CARE MANAGER: 06/13/194 DEP CLI 06/13/19 [place] [id number] [place] [id number]
[2019-06-13] MEDS ORDERED: MOBIC7.5 MG PO (08:05)
[2019-06-13 08:11] VITALS: BP 136/79; Ht 167.6 cm; Wt 138.6 kg
[2019-06-13 08:37] LABS: ALT (SGPT) 36 U/L (10-68); CALC OSMOLALITY 282 mosm/kg (275-300); CARBON DIOXIDE 24.7 mmol/L (21.0-32.0); CHLORIDE - SERUM 105 mmol/L (98-107); CHOL - HDL RATIO 3.3 ratio (2.3-4.9); CHOLESTEROL, TOTAL 156 mg/dL (0-200); CREATININE - SERUM 1.1 mg/dL (0.6-1.3); GLUCOSE 102 mg/dL (74-106); HDL CHOLESTEROL 48 mg/dL (32-96); LDL CHOLESTEROL 91 mg/dL (0-100); LDL-HDL RATIO 1.9 ratio (1.5-3.5); POTASSIUM - SERUM 4.2 mmol/L (3.5-5.1); SODIUM 141 mmol/L (136-145); TRIGLYCERIDE 87 mg/dL (30-200); UREA NITROGEN 19 mg/dL (7-18); eGFR NON AFRICAN AMERICAN 75 mL/min (90-120)
[2019-06-13 08:44] LABS: BASOPHILS 0.6 % (0-2); EOSINOPHILS 9.9 % (0-7); HEMATOCRIT 42.6 % (42.0-54.0); HEMOGLOBIN 14.4 g/dL (13.5-17.5); IMMATURE GRANULOCYTES 0.3 % (0-5); LYMPHOCYTES 35.5 % (15-50); MCH 31.8 pg (26.0-34.0); MCHC 33.8 g/dL (31.0-37.0); MEAN PLATELET VOLUME 10.2 fL (7.4-10.4); MONOCYTES 8.2 % (2-11); NEUTROPHILS 45.5 % (40-80); PLATELET COUNT 234 10x3/uL (130-400); RBC 4.53 10x6/uL (4.20-6.10); RDW 13.4 % (11.5-14.5); WBC 7.2 10x3/uL (4.8-10.8)
--- NOTE | 2019-06-13 10:43 | NUR ---
PT ARRIVED BY STRETCHER. PLACED ON MONITORS. ASSESSMENT COMPLETED. VSS. FAMILY AT BEDSIDE. CALL LIGHT WITHIN REACH.
--- NOTE | 2019-06-13 11:01 | NUR ---
PT RESTING COMFORTABLY. VSS. CALL LIGHT WITHIN REACH. RIGHT WRIST Z BAND IN PLACE. NO BLEEDING/HEMATOMA NOTED. CALL LIGHT WITHIN REACH. TOLERATING SIPS OF SODA AT THIS TIME.
--- NOTE | 2019-06-13 11:30 | NUR ---
RIGHT RADIAL Z BAND IN PLACE. NO BLEEDING/HEMATOMA NOTED. VSS. CALL LIGHT WITHIN REACH. PT RESTING COMFORTABLY.
--- NOTE | 2019-06-13 11:40 | NUR ---
2cc OF AIR REMOVED FROM BAND. NO BLEEDING/HEMATOMA NOTED. CALL LIGHT WITHIN REACH.
--- NOTE | 2019-06-13 11:53 | NUR ---
3cc OF AIR REMOVED FROM BAND. NO BLEEDING/HEMATOMA NOTED. VSS. CALL LIGHT WITHIN REACH. NO NEEDS AT THIS TIME.
--- NOTE | 2019-06-13 12:07 | NUR ---
4cc OF AIR REMOVED FROM Z BAND. NO BLEEDING/HEMATOMA NOTED. CALL LIGHT WITHIN REACH. FAMILY AT BEDSIDE.
--- NOTE | 2019-06-13 12:15 | NUR ---
RIGHT RADIAL BAND REMOVED AND DRESSING APPLIED. NO BLEEDING/HEMATOMA NOTED. VSS. CALL LIGHT WITHIN REACH.
--- NOTE | 2019-06-13 12:20 | NUR ---
PIV D/C'D WITH CATH TIP INTACT. PT TOLERATED WELL. RIGHT WRIST DRESSING C/D/I. NO S/S OF HEMATOMA NOTED. PT INSTRUCTED TO GET UP AND DRESSED. FAMILY AT BEDSIDE TO ASSIST.
--- NOTE | 2019-06-13 12:30 | NUR ---
DISCUSSED DISCHARGE INSTRUCTIONS WITH PT AND PT'S FAMILY. THEY VOICED UNDERSTANDING.
--- NOTE | 2019-06-13 12:35 | NUR ---
PT TAKEN TO RESTOOM BY WHEELCHAIR. VOIDED WITHOUT DIFFICULTY. TAKEN OUT TO VEHICLE BY WHEELCHAIR. NO S/S OF DISTRESS NOTED. ALL BELONGINGS AND PAPERWORK IN HAND. RIGHT WRIST DRESSING IN PLACE. NO BLEEDING/HEMATOMA NOTED.
== END 2019-06-13 12:35 | disposition home or self-care (01) ==
LOC: D.CATH 07:33
PROVIDERS: ATTEND Internal Medicine Interventional Cardiology
DX: I25.119 Atherosclerotic heart disease of native coronary artery with unspecified angina pectoris (principal); R94.39 Abnormal result of other cardiovascular function study; R06.00 Dyspnea, unspecified; E78.5 Hyperlipidemia, unspecified; I10 Essential (primary) hypertension; Z72.0 Tobacco use

== ENCOUNTER → 2019-12-07 22:58 | Outpatient (CLI) | payer BC ==
[2019-06-13 08:11] VITALS: BMI 49.3
[~2019-12-07 22:58] MED LIST changes: +MOBIC7.5 MG PO
[2019-12-07 23:33] LABS: CHOL - HDL RATIO 3.1 ratio (2.3-4.9); LDL-HDL RATIO 1.7 ratio (1.5-3.5)
== END | disposition home or self-care (01) ==
LOC: D.LABREF 22:58
PROVIDERS: ATTEND Nurse Practitioner
DX: E78.5 Hyperlipidemia, unspecified (principal)